=== PATIENT | male | born 1990 | race Caucasian/White ===

== ENCOUNTER 2022-05-31 15:45 | Outpatient (CLI) | payer OTHER, SELFPAY ==
--- OUTSIDE RECORDS SUMMARY | 2022-05-31 15:55 | XMS_ITS | Clinical Summary ---
:1990 Author Organization [facility] Address [address] [place] [address] Care Team Providers Name Role Phone Suzanna Sofia M.D. Primary Care Provider [phone] Source Comments Patient records contain information from all sites at [facility]. For routine questions regarding patient records, call [phone] during business hours, M-F 8:00 AM - 5:00 PM Central Time. Record requests for emergency care only can be directed to [phone] at any time.[facility] Allergies No known active allergies Medications No known medications Active Problems Problem Noted Date Fracture Little Finger Distal Phalanx Nondisplaced Sub sequent With Routine 07/15/2019 Healing Left Resolved Problems Problem Noted Date Resolved Date Palpitations 11/08/2018 11/08/2018 Anxiety 11/08/2018 11/08/2018 Pain Right Lower Quadrant 07/09/2018 11/08/2018 Encounters Date Type Specialty Care Team Description 05/30/2022 Patient Self-Triage Symptom Casing Puller, Prov ider 05/28/2022 Patient Self-Triage Symptom Casing Puller, Prov ider from Last 3 Months Immunizations Name Administration Dates Next Due HepB Pediatric/Adolescent 05/14/1998, 11/10/1997, 10/08/1997 MCV4 (Menactra) 03/02/2005 Tdap 03/02/2005 Family History Medical History Relation Name Comments Coronary artery disease Father Dmitriy Arthritis Maternal Grandmother Sukhdeep Diabetes mellitus type II Maternal Grandmother Sukhdeep Hyperlipidemia Maternal Grandmother Sukhdeep Hypertension Maternal Grandmother Sukhdeep Skin cancer Paternal Grandmother Evelin Relation Name Status Comments Father Dmitriy Maternal Grandmother Sukhdeep Paternal Grandmother Evelin Social History Tobacco Use Types Packs/Day Years Used Date Smoking Tobacco: Never Smokeless Tobacco: Never Alcohol Use Standard Drinks/Week Comments No 0 (1 standard drink = 0.6 oz pure alcoho l) Alcohol Habits Answer Date Recorded How often do you have a drink containing alcohol? Never 06/17/2019 How many drinks containing alcohol do you have on a typical Not asked day when you are drinking? How often do you have six or more drinks on one occasion? Ne kaitlin 06/17/2019 Social Isolation Answer Date Recorded In a typical week, how many times do you talk on Patient ref used 06/17/2019 the phone with family, friends, or neighbors? How often do you get together with friends or Patient refuse d 06/17/2019 relatives? How often do you attend methodist or hoahaoism Patient refused 06/17/2019 services? Do you belong to any clubs or organizations such as Patient refused 06/17/2019 methodist groups, unions, fraternal or athletic groups, or school groups? How often do you attend meetings of the clubs or Patient ref used 06/17/2019 organizations you belong to? Are you now , , , , Living wi th partner 06/17/2019 never or living with a partner? Physical Activity Answer Date Recorded On average, how many days per week do you engage in moderate to 3 days 06/17/2019 strenuous exercise (like walking fast, running, jogging, dancing, swimming, biking, or other activities that cause a light or heavy sweat)? On average, how many minutes do you engage in exercise at is 20 min 06/17/2019 level? Stress Answer Date Recorded Do you feel stress - tense, restless, nervous, or Only a lit tle 06/17/2019 anxious, or unable to sleep at night because your mind is troubled all the time - these days? Financial Resource Strain Answer Date Recorded How hard is it for you to pay for the very basics like Not h margarette at all 06/17/2019 food, housing, medical care, and heating? Food Insecurity Answer Date Recorded Within the past 12 months, you worried that your food would Never true 06/17/2019 run out before you got money to buy more. Within the past 12 months, the food you bought just didn't N ever true 06/17/2019 last and you didn't have money to get more. Transportation Needs Answer Date Recorded In the past 12 months, has lack of transportation kept you f rom No 06/17/2019 medical appointments or from getting medications? In the past 12 months, has lack of transportation kept you f rom No 06/17/2019 meetings, work, or getting things needed for daily living? Education Answer Date Recorded What is the highest level of school Bachelor's degree (e.g., BA, AB, 06/17/2019 you have completed or the highest BS) degree you have received? 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 Vital Signs Vital Sign Reading Time Taken Comments Blood Pressure 110/68 08/26/2019 11:52 AM DRAPERY HEMMER AUTOMATIC Pulse 74 08/26/2019 11:52 AM DRAPERY HEMMER AUTOMATIC Temperature 36.8 ??C (98.2 ??F) 06/12/2019 12:02 PM DRAPERY HEMMER AUTOMATIC Respiratory Rate 14 06/21/2019 10:26 AM DRAPERY HEMMER AUTOMATIC Oxygen Saturation 100% 11/08/2018 11:31 AM CDT Inhaled Oxygen Concentration - - Weight 71.2 kg (156 lb 15.5 oz) 08/26/2019 11:52 AM DRAPERY HEMMER AUTOMATIC Height 174.5 cm (5' 8.7) 08/26/2019 11:52 AM DRAPERY HEMMER AUTOMATIC Body Mass Index 23.38 08/26/2019 11:52 AM DRAPERY HEMMER AUTOMATIC Plan of Treatment Health Maintenance Due Date Last Done Comments Hepatitis C Screening 1990 COVID-19 Vaccine (#1) 1990 DTaP,Tdap,and Td Vaccines (2 03/02/2015 03/02/2005 - Td or Tdap) Depression Screening (Annual 07/10/2021 PHQ-2) Influenza Vaccine (#1) 2022 Hepatitis B Vaccines Completed 05/14/1998, 11/10/1997, 10/08/1997 HIV Screening Completed 09/02/2019 Pneumococcal vaccine (0-64 Aged Out No lo nger eligible based years) on patient's age to complete this to [facility] Insurance Payer Benefit Plan Subscriber ID Effective Phone Address Typ e / Group Dates [employer] xxxxxxxxxxxxx 2019-Pr [phone] [facility] [phone] [facility] [place] [address] [facility] CHOICE [id number] 2021-Pre [address] [address] [place] [address] Fermin Lopez Workers Comp Self 1990 [address] [address] Care Teams Cash Manager Relationship Specialty Start Date End Date Suzanna Sofia M.D. PCP - General 04/03/19 [address] [facility] [address]
--- OUTSIDE RECORDS SUMMARY | 2022-05-31 15:55 | XMS_ITS | Encounter Summary ---
:1990 Author Organization [facility] Address [address] [place] [address] Care Team Providers Name Role Phone Suzanna Sofia M.D. Primary Care Provider [phone] Encounter Details Date Type Department Care Team Description 03/23/2021 Admin Visit Department of Family Medicine, [address] [place] [address] [facility] [phone] Social History Tobacco Use Types Packs/Day Years [...] 06/17/2019 relatives? How often do you attend orthodoxy or quaker Patient refused 06/17/2019 services? 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 PCP - General 04/03/[address] [place] [address] documented as of this encounter
--- OUTSIDE RECORDS SUMMARY | 2022-05-31 15:55 | XMS_ITS | Encounter Summary ---
:1990 Author Organization [facility] Address [address] [place] [address] Care Team Providers Name Role Phone Suzanna Sofia M.D. Primary Care Provider [phone] Encounter Details Date Type Department Care Team Description 05/28/2022 Patient Self-Triage CONNECTED CARE Symptom Hematology Supervisor, Provider Social History Tobacco Use Types Packs/Day Years [...] 06/17/2019 relatives? How often do you attend buddhist or christian Patient refused 06/17/2019 services? Do you belong to any clubs or organizations such as Patient refused 06/17/2019 buddhist groups, unions, fraternal or athletic groups, or [...] minutes do you engage in exercise at th is 20 min 06/17/2019 level? 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 PCP - General 04/03/19 [address] [place] [address] documented as of this encounter
--- OUTSIDE RECORDS SUMMARY | 2022-05-31 15:55 | XMS_ITS | Encounter Summary ---
:1990 Author Organization [facility] Address [address] [place] [address] Care Team Providers Name Role Phone Suzanna Sofia M.D. Primary Care Provider [phone] Encounter Details Date Type Department Care Team Description 05/30/2022 Patient Self-Triage CONNECTED CARE Symptom Market Maker, Provider Social History Tobacco Use Types Packs/Day [...] 06/17/2019 relatives? How often do you attend sabianist or adventism Patient refused 06/17/2019 services? 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 PCP - General 04/03/19 [address] [place] [address] documented as of this encounter
--- OUTSIDE RECORDS SUMMARY | 2022-05-31 15:55 | XMS_ITS | Encounter Summary ---
:1990 Author Organization [facility] Address [address] [place] [address] Care Team Providers Name Role Phone Suzanna Sofia M.D. Primary Care Provider [phone] Reason for Visit Reason Onset Date Comments Testing For Upper Respiratory Virus Symptoms 03/22/2021 Encounter Details Date Type Department Care Team Description 03/22/2021 External Outreach Department of [facility] Werner Hamlinold Contact With And Medicine, Nithya Levy D.O. (Suspected) Exposure Clinic, in [place], [address] To COVID-19 (Primary [place], [place] Dx) [address] [address] [place], [place] [phone] [address] (Work) [phone] Social History Tobacco Use Types Packs/Day Years [...] 06/17/2019 relatives? How often do you attend temple or sikhism Patient refused 06/17/2019 services? Do you belong to any clubs or organizations such as Patient refused 06/17/2019 temple groups, unions, fraternal or athletic groups, or school groups? How often do you attend meetings of the clubs or Patient ref used 06/17/2019 organizations you belong to? 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 - 03/22/2021 3:44 PM CDT Encounter created for symptomatic infectious disease screening with possible COVID, Influenza, RSV, and/or Group A Strep testing. documented in this encounter Miscellaneous Notes Result Encounter Note - Kimberly Nair R.N. - 03/24/2021 9:53 AM CDT The patient will be contacted if they are eligible for Monoclonal Antibody Infusion (MASS 1 or greater) and/or Remote Patient Monitoring (MASS 3 or greater). The [facility] (CCT) sends general guidance about COVID-19 to all patients by letter or portal, except when a patient is hospitalized or resides in a retirement. [facility] will call all adult patients at highest risk for severe complications of COVID-19 (MASS 3 or greater), those without an online services account, and those who require an interpreter for the deaf. Any patient with a MASS score 1 or greater or a COVID-19 score 1 or greater may be at higher risk ofsevere disease. These patients will follow up directly with primary care. The primary care team willdecide if the patient needs a phone call or a follow up portal message to assess symptom severity, provide individualized guidance on symptom monitoring or symptom management, or to reinforce when to se ek care. [facility] encourages patients to follow up with their PCP with questions, worsening symptoms, or for symptom management. For questions, contact the [facility] ([facility]): Pager: [phone] In basket: P [facility] COVID-19 POSITIVE Covid Care e-consult Components of the Monoclonal Antibody Selection Score (MASS) Compromised Immune System/Transplant = 4 points Chronic Kidney Disease on Dialysis = 4 points Age greater than or equal to 55 and chronic pulmonary disease = 3 points Age greater than or equal to 65 = 2 points Age greater than or equal to = 2 points Diabetes = 2 points Age greater than or equal to 55 AND cardiovascular disease = 2 points Age greater than or equal to 55 and hypertension = 1 point NOTE: At the time of testing, patients are instructed to obtain the result by calling the [employer] result line or by checking the online services account. documented in this encounter Plan of Treatment Not on filedocumented as of this encounter Procedures Procedure Name Priority Date/Time Associated Diagnosis Comme nts SARS CORONAVIRUS-2 Routine 03/23/2021 10:01 AM Contact With An d Results for this RNA, V CDT (Suspected) Exposure procedu re are in To COVID-19 the results section. documented in this encounter Results (ABNORMAL) SARS Coronavirus-2 RNA, V Symptomatic (03/23/2021 10:01 AM CDT) [facility] Method Time Signature SARS-CoV-2 Swab, 03/23/2021 [facility] Specimen Nasopharynx 9:07 PM CDT Source SARS CoV-2 Detected (A) Undetected 03/23/2021 [facility] RNA, TMA 9:07 PM CDT Comment: SARS-CoV-2 RNA present. ----ADDITIONAL INFORMATION---- This molecular amplification test was pe rformed using the Aptima SARS-CoV-2 assay ([employer] on the [employer] tem under emergency use authorization (EUA) by the U.S. Food and Drug Administ ration. Fact sheets for this EUA assay can be fo und at the following links: For Healthcare Providers: https://www.fd a.gov/media/613196/download For Patients: https://www.fda.gov/media/ 674797/download Specimen Anatomical Collection Method Collection Time Receive d Time (Source) Location / / Volume Laterality Varies 03/23/2021 10:01 03/23/2021 2:38 (Nasopharynx) AM CDT PM CDT Davide Hamlin D.O. LAB MICROBIOLOGY - GENERAL O GEE Performing Organization Address City/State/ZIP Code Phon e Number [facility]- [address] [place] [id number] [place] [address] [place] [address] [address] documented in this encounter Visit Diagnoses Diagnosis Contact With And (Suspected) Exposure To COVID-19 - Primary documented in this encounter Additional Health Concerns Infection Onset Date Last Indicated Resolved Time COVID19 Pending 03/22/2021 03/23/2021 03/23/2021 9:07 PM CDT documented as of this encounter Care Teams Senior Estimator Relationship Specialty Start Date End Date Suzanna Sofia M.D. PCP - General 04/03/[address] [place] [address] documented as of this encounter
--- OUTSIDE RECORDS SUMMARY | 2022-05-31 15:56 | XMS_ITS | Encounter Summary ---
:1990 Author Organization [facility] Address [address] [place] [address] Care Team Providers Name Role Phone Unavailable Primary Care Provider Unavailable Encounter Details Date Type Department Care Team Description 08/26/2016 Hospital Encounter HX [facility] OCCUP MED Cortney, Jose , TREE LOADER MEAT, C.N.P., D.N.P. Social History Tobacco Use Types Packs/Day Years Used Date Smoking Tobacco: Never Alcohol Habits Answer Date Recorded How often [...] 06/17/2019 relatives? How often do you attend cheondoism or alevism Patient refused 06/17/2019 services? Do you belong to any clubs or organizations such as Patient refused 06/17/2019 cheondoism groups, unions, fraternal or athletic groups, or [...] or getting things needed for daily living? 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 - 08/26/2016 10:58 AM CST Clinic Full [id number]-ocfvgyuphc CHIEF COMPLAINT/REASON FOR VISIT Pre employment [employer] HISTORY OF PRESENT ILLNESS Mr. Lopez is a 26 years old male, who presents to clinic today for Pre-employment physical examination. During this visit, we reviewed the health questionnaire in details and patient deniesany significant health concern. MEDICATIONS No active medications ALLERGIES NKA PAST MEDICAL HISTORY Chronic No chronic problems Historical No historical problems SOCIAL HISTORY Date Time: 08/26/2016 10:16 Tobacco: Smoking Status: Never smoker Exposure: No Results Found Alcohol: Use: No Results Found Recreational Drugs: Use: None Type: No Results Found SOCIAL HISTORY: He is single, lives with his girlfriend, and 2 pets. He denies use of tobacco products, recreational drugs, and consumption of alcoholic beverages. 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 Denies a 2nd job during his visit. HEALTH MAINTENANCE Patient encouraged to maintain healthy lifestyle habits. SYSTEMS REVIEW CONSTITUTIONAL: Denies unexplained weight change, fatigue, weakness, fever, or chills. HEENT: Denies headaches, visual changes, rhinorrhea, epistaxis, or sore throat. HEART: Denies chest pain, chest pressure. LUNGS: Denies coughing, sneezing, wheezing or hemoptysis. MUSCULOSKELETAL: Denies muscle pain, joint pain, redness, or swelling. NEUROLOGIC: Denies numbness, tingling, or seizures. VITAL SIGNS HR: 73 BP: 124 / 61 HT: 176.5 cm WT: 68.70 kg BMI: 22.05 PHYSICAL EXAMINATION VITAL SIGNS: Within normal limit, and stable CONSTITUTIONAL: Well hydrated, well nourished, in no distress, alert and oriented X4. HEENT: Normocephalic, atraumatic, pupils are equal, reactive to light and accommodation. Extraocular movements intact. Ear landmarks present bilaterally. Oropharynx midline and normal. No dental concerns. HEART: Regular rate and rhythm. S1 and S2 present. No murmur noted. LUNGS: Clear lung sounds bilaterally. No adventitious sounds noted. ABDOMEN: Normoactive bowel sounds in all four quadrants. No tenderness with palpation, no organomegaly noted. MUSCULOSKELETAL: Five out of five musculoskeletal strength in all extremities, 5/5 active range of motion, no crepitus, no laxity, no weakness noted. Romberg test is negative. Please see scanned document for details. LAB RESULTS Urine drug test completed. IMPRESSION/REPORT/PLAN Exam Preemployment Ordered: Employment Exam - [id number] Normal Pre-employment Physical He was able to complete all tests without any difficulties, no significant finding noted during this visit. Patient is medically qualified for this job. We reviewed the health history and physical examination per protocol. Patient educated to maintain proper body mechanics to prevent injury. Patient verbalized understanding plan of care and denies any question at this time. Please see scanned documentation for details. Electronically Signed By: JOSE TERAN APRN, CNP On: 08/26/2016 11:03 AM Source: [employer] Document Id: [id number] RE CONSULTANT documented in this encounter Procedure Notes Maryuri Rodriguez C.M.A. - 08/26/2016 10:18 AM CST Vision Testing Vision Testing Entered On: 08/26/2016 10:18 VMWARE CONSULTANT Performed On: 08/26/2016 10:18 VMWARE CONSULTANT by MARYURI RODRIGUEZ CMA Vision Testing Corrective Lenses : None Color Vision : Pass Eye, Right w/o Correction : 20/20 Eye, Left w/o Correction : 20/20 Eyes, Both w/o Correction : 20/20 Field of Vision Right : 85 degrees Field of Vision Left : 85 degrees MARYURI RODRIGUEZ CMA - 08/26/2016 10:18 VMWARE CONSULTANT Source: [employer] Document Id: [id number] VMWARE CONSULTANT!9 RE CONSULTANT documented in this encounter Miscellaneous Notes Miscellaneous - Maryuri Rodriguez C.M.A. - 08/26/2016 10:16 AM CST Adult Casino Beverage Server Intake/History Adult Casino Beverage Server Intake/History Entered On: 08/26/2016 10:18 VMWARE CONSULTANT Performed On: 08/26/2016 10:16 VMWARE CONSULTANT by MARYURI RODRIGUEZ CMA Intake Chief Complaint : Pre employment [employer] Peripheral Pulse Rate : 73 /min Heart Rhythm : Regular Systolic Blood Pressure : 124 mmHg Diastolic Blood Pressure : 61 mmHg NIBP Mean : 82 mmHg BP Location : Left upper extremity Blood Pressure Cuff Size : Regular Height : 176.5 cm(Converted to: 5 ft 9 inch(es), 69 inch(es)) Actual Weight : 68.70 kg(Converted to: 151 lb 7 oz) Weight Source : Standing scale Dosing Weight Clinic : 68.7 kg Prosthetic device on during patient weight : No Clinic BSA : 1.84 Body Mass Index : 22.05 kg/m2 MARYURI RODRIGUEZ [facility] 08/26/2016 10:16 VMWARE CONSULTANT General Info Information Given By : Patient Languages : Maltese Is Patient Female and 13-50 no hysterectomy : No MARYURI RODRIGUEZ [facility] - 08/26/2016 10:16 VMWARE CONSULTANT Subjective Pain Symptoms : No MARYURI RODRIGUEZ [facility] 08/26/2016 10:16 VMWARE CONSULTANT Dependent Habits Smoking Status : Never smoker Tobacco 2A : No Tobacco Use/Currently Using : No Tobacco Use/Last 30 Days : No Tobacco Use/Last 12 months : No MARYURI RODRIGUEZ [facility] 08/26/2016 10:16 VMWARE CONSULTANT Caffeine Use Grid Caffeine Use : Current Type : Soft drinks Frequency : Daily Amount : 1 MARYURI RODRIGUEZ [facility] 08/26/2016 10:16 VMWARE CONSULTANT Recreational Drug Use Grid Drug Use : None MARYURI RODRIGUEZ [facility] 08/26/2016 10:16 VMWARE CONSULTANT Source: [facility] POWERCHART Document Id: [id number] VMWARE CONSULTANT!38 RE CONSULTANT Miscellaneous - Jose Teran APRN, C.N.P. - 08/26/2016 9:15 AM CST Ambulatory Patient Summary [facility] [place] [phone] Visit Information Name: CRITSIAN LOPEZ [facility] Number: [id number] Current Date: 08/26/2016 09:15:10 Physicians Attending Provider: JOSE TERAN APRN MMI TEACHER Primary Care Provider: GIRISH BARBOSA DO CRISTIAN LOPEZ has been given the following list of follow-up instructions, medication list, and patient education materials: Follow-up Instructions Your Medications Here is a list of your medications. It is important to take your medications as directed. Use a pillbox or chart to help remind you to take your medications. Please let your doctor or nurse know if you have problems taking your medications. Medication/Strength How to Take Indications/Special Instructions/Comments/Notes for Patient Medication Changes/Routing No Medications found Stop Taking the Following Medications: Medication list as of 08-26-16 09:15 Attention: If you have any medications at home that are not on this list, DO NOT take them until youcontact your provider for clarification. Give a copy of your medication list to your primary care provider. Update your medication list any time medications or doses are changed and carry your medication list at all times in case of emergency. Electronically Signed By: JOSE TERAN APRN, CNP Signed On:26-AUG-2016 09:15:06 Your Allergies & Intolerances Substance Reaction Symptoms Category Comments No Known Allergies Your Problem List Problem Status Onset Comments No Problems found Your Upcoming Appointments Date Time Location Provider No Appointments found Attention: Contact your local Clinic if further appointment detail needed. Consider Using Patient Online Services Patient Online Services is a secure online and Mobile application that lets you: ?? View lab and test results ?? View portions of your medical record including clinical notes, immunizations and discharge summaries ?? Request an appointment or medication refill ?? Review your appointment schedule ?? Send secure messages to your care team Its easy to create an account if you dont have one. Go to [email or web address] and click on Create Your Account. Then, follow the directions to complete the online form. Youll be asked for your [facility] number which you can find at the top of this document. Your Goals/Additional instructions: Source: [facility] POWERCHART Document Id: [id number] RE CONSULTANT Miscellaneous - Jose Teran APRN, C.N.P. - 08/26/2016 9:15 AM CST Ambulatory Discharge Medication List [facility] [address] [place] [phone] Visit Information Name: CRISTIAN LOPEZ [facility] Number: [id number] Current Date: 08/26/2016 09:15:10 Attending Provider: JOSE TERAN APRN, CNP Primary Care Provider: GIRISH BARBOSA DO CRISTIAN LOPEZ has been given the following list of medications: Your Medications It is important to take your medications as directed. Use a pill box or chart to help remind you to take your medications. Please let your doctor or nurse know if you have problems taking your medications. Medication/Strength How to Take Indications/Special Instructions/Comments/Notes for Patient Medication Changes/Routing No Medications found Stop Taking the Following Medications: Medication list as of 08-26-16 09:15 Attention: If you have any medications at home that are not on this list, DO NOT take them until youcontact your provider for clarification. Give a copy of your medication list to your primary care provider. Update your medication list any time medications or doses are changed and carry your medication list at all times in case of emergency. Electronically Signed By: JOSE TERAN APRN, CNP Signed On:26-AUG-2016 09:15:06 Additional Information: Source: [facility] POWERCHART Document Id: [id number] RE CONSULTANT documented in this encounter Plan of Treatment Not on filedocumented as of this encounter Visit Diagnoses Not on filedocumented in this encounter
--- OUTSIDE RECORDS SUMMARY | 2022-05-31 15:56 | XMS_ITS | Encounter Summary ---
:1990 Author Organization [facility] Address [address] [place] [address] Care Team Providers Name Role Phone Unavailable Primary Care Provider Unavailable Encounter Details Date Type Department Care Team Description 07/18/2013 Hospital Encounter HX [facility] RESIDENTS l, Javi C , D.O. Social History Tobacco Use Types Packs/Day Years Used Date Smoking Tobacco: Never Assessed Alcohol Habits Answer Date Recorded How often [...] 06/17/2019 relatives? How often do you attend scientology or congregation Patient refused 06/17/2019 services? 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 - 07/18/2013 12:56 PM CST [id number] HISTORY OF PRESENT ILLNESS: Fermin is in today to see Dr. Ferrer for a physical examination related to school. 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 I have reviewed all the history and physical examinations with Dr. Ferrer. I did go in. PHYSICAL EXAMINATION: GENERAL: He is alert and oriented, no acute distress. VITAL SIGNS: Temperature is 36.4 Celsius, pulse is 86 and regular, blood pressure 122/70. His weightis 63.0 kg. SKIN: Warm and dry. LUNGS: Clear to auscultation. HEART: Regular without murmur or gallop. IMPRESSION/REPORT/PLAN: All the rest of the details of the history and physical examination are noted in Dr. Ferrer's dictated note. I agree with his assessment and his plan of care. Cliff Cervantes M.D./pos Electronically Signed By: CLIFF CERVANTES MD On: 07/25/2013 11:29 AM Source: [facility] [employer] Document Id: [id number] N UNLOADER MACHINE documented in this encounter H&P Notes Javi Ferrer D.O. - 07/18/2013 12:56 PM CST [id number] PRECEPTOR: Please note, this patient was seen by and also precepted to Dr. Destini Cervantes. CHIEF COMPLAINT/REASON FOR VISIT Physical examination for law enforcement course. 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 He currently has no medical concerns or complaints outside of that he needs a general physical examination for graduation requirements. MEDICATIONS None. ALLERGIES None. SYSTEMS REVIEW A 12-point review of systems was conducted including HEENT, respiratory, cardiovascular, GI, , musculoskeletal, neuro, and psych and, is otherwise unremarkable unless noted previously already in the HPI. PAST MEDICAL/SURGICAL HISTORY MEDICAL: None. SURGICAL: None. SOCIAL HISTORY Patient denies alcohol usage. Patient denies tobacco usage. Patient denies usage of illicit drugs. 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 FAMILY HISTORY Unremarkable. Mother is age 49. Father is 59. Both are alive and healthy. VITAL SIGNS Temperature 36.4, heart rate 86, blood pressure 122/70, height 172.1 cm, weight 63.0 kg, BMI 21.27 kg/m2. PHYSICAL EXAMINATION GENERAL: Fermin is a well-appearing, 23-year-old male who appears in no acute distress. HEENT: Normocephalic and atraumatic. Pupils equal, round, react to light and accommodation. Extraocular muscles are intact bilaterally. Oral mucosa is moist and pink. Nares are patent bilaterally. Tympanic membranes are visualized with a normal cone of light. Patient's hearing examination is unremarkable. Patient was able to pass the hearing examination in the right and left ears at 500, 1000, 2000, and 4000 Hz. Patient visual examination test with a Snellen eye chart was 20/25 in the left eye and 20/30 in the right eye. NECK: Supple. No JVD. No thyromegaly. No lymphadenopathy. HEART: Regular rate and rhythm with no murmurs, gallops, or rubs. LUNGS: Clear to auscultation with good breath sounds. No wheezes, rales, or rhonchi. ABDOMEN: Soft, nondistended. Bowel sounds present in all 4 quadrants. No organomegaly palpable. MUSCULOSKELETAL: Full range of motion in all 4 extremities with appropriate muscle strength at 5/5. Patient is able to toe and heel walk as well as heel-to-toe walk with ease. Patient is able to duck walk and squat. Patient is able to flex and extend his spine without any limitations or pain. NEURO: Cranial nerves 2-12 are grossly intact. Deep tendon reflexes are 2+ throughout. VASCULAR: Pulses are 2+ throughout with no signs of edema. GENITOURINARY: Testicular examination shows no signs of masses and is nontender. Patient has no signs of inguinal hernia. OSTEOPATHIC EXAMINATION: Patient was examined in the seated and upright position and shows no signs of tissue texture abnormalities. PSYCH: The patient has appropriate mood and affect. He has appropriate eye contact. His speech is fluent. 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 Patient is unremarkably healthy, and I haveno concerns. PLAN: General medical examination: 1. Fermin does not have any preexisting injuries or medical restrictions which may affect his abilityto safely participate in strenuous but not unduly harsh training activities. 2. He is unremarkably healthy, and I have no concerns about his health at this time. 3. No laboratory testing was evaluated at today's appointment and will not be evaluated unless needed or requested by the program. 4. A vision and hearing examination were performed today, and the patient did pass both. Of note, hedid state that he previously had 20/15 vision in both eyes; however, had seen an business enterprise officer within the last year for general examination. After receiving some eye drops, his vision has since somewhat changed. He has not returned to an business enterprise officer to have this reevaluated, but it does not cause him any problems. Javi Ferrer D.O./pos cc: Cliff Cervantes M.D. [facility] [place] [address] Electronically Signed By: JAVI FERRER DO On: 07/19/2013 01:05 PM Source: [facility] [id number] Document Id: [id number] N UNLOADER MACHINE documented in this encounter Procedure Notes Earle Valadez C.M.A. - 07/18/2013 1:57 PM CST Vision Testing Vision Testing Entered On: 07/18/2013 13:57 GRAIN UNLOADER MACHINE Performed On: 07/18/2013 13:57 GRAIN UNLOADER MACHINE by EARLE VALADEZ Vision Testing Eye, Right w/o Correction : 20/30 Eye, Left w/o Correction : 20/25 EARLE VALADEZ - 07/18/2013 13:57 GRAIN UNLOADER MACHINE Source: [facility] POWERCHART Document Id: [id number] GRAIN UNLOADER MACHINE!4 N UNLOADER MACHINE Earle Valadez C.MDipika - 07/18/2013 1:56 PM CST Hearing Point of Care Testing - Audiometer Hearing Point of Care Testing - Audiometer Entered On: 07/18/2013 13:57 GRAIN UNLOADER MACHINE Performed On: 07/18/2013 13:56 GRAIN UNLOADER MACHINE by EARLE VALADEZ Hearing Point of Care Testing - Audiometer Left Ear Hearing POC Test Grid Left Ear 20 db Left Ear 25 db Left Ear 30 db 500 Hz : No response Response 1000 Hz : Response 2000 Hz : Response 4000 Hz : Response JUANITAANITRAEARLE Jose - 07/18/2013 13:56 GRAIN UNLOADER MACHINE EARLE VALADEZ - 07/18/2013 13:56 GRAIN UNLOADER MACHINE EARLE VALADEZ - 07/18/2013 13:56 GRAIN UNLOADER MACHINE Right Ear Hearing POC Test Grid Right Ear 20 db Right Ear 25 db Right Ear 30 db 500 Hz : No response Response 1000 Hz : Response 2000 Hz : Response 4000 Hz : Response EARLE VALADEZ - 07/18/2013 13:56 GRAIN UNLOADER MACHINE JUANITA EARLE M - 07/18/2013 13:56 GRAIN UNLOADER MACHINE EARLE VALADEZ - 07/18/2013 13:56 GRAIN UNLOADER MACHINE Source: [facility] POWERCHART Document Id: [id number] GRAIN UNLOADER MACHINE!20 N UNLOADER MACHINE documented in this encounter Miscellaneous Notes Miscellaneous - Arianna Keith, TaniaPMaryN. - 11/01/2016 9:56 AM CDT PCP Document Contains Addenda Addendum by PRINCESS WHITE on November 01, 2016 10:15:02 CDT DONE From: ARIANNA KEITH LPN To: [facility] Patient Access; Sent: 11/01/2016 09:56:26 CDT Subject: PCP PCP Field Change Request Reason for PCP Field Change Request: ( ) Patient Transferring Care to another non-[place] facility (ex. Moved out of state) change to PCP, Elsewhere ( ) Patient seen by another [place] provider for primary care needs. Provide name of new PCP. ( X ) Other: Please change PCP to Elsewhere. pt LV 07/18/2013; pt did not formally establish with [facility] providers, 2 encouters were regarding physicals. Note: If patient is , nursing to notify HIM in order to enter a date into the EMR. *Ensure EMR documentation supports reason for change. ( ) Yes or ( ) No Patient has been contacted (if no, then Patient Access will call) [facility] Document Id: [id number] N UNLOADER MACHINE Miscellaneous - Earle Valadez C.MDipika - 07/18/2013 1:14 PM CST Adult Case Resolution Specialist Intake/History Adult Case Resolution Specialist Intake/History Entered On: 07/18/2013 13:17 GRAIN UNLOADER MACHINE Performed On: 07/18/2013 13:14 GRAIN UNLOADER MACHINE by EARLE VALADEZ Intake Chief Complaint : [employer] Temperature Core : 36.4 DegC(Converted to: 97.5 DegF) (LOW) Peripheral Pulse Rate : 86 /min Heart Rhythm : Regular Systolic Blood Pressure : 122 mmHg Diastolic Blood Pressure : 70 mmHg NIBP Mean : 87 mmHg BP Location : Right upper extremity Blood Pressure Cuff Size : Regular Height : 172.1 cm(Converted to: 5 ft 8 inch(es), 67.76 inch(es)) Actual Weight : 63.0 kg(Converted to: 138 lb 14 oz) Weight Source : Standing scale Dosing Weight Clinic : 63 kg Clinic BSA : 1.74 Body Mass Index : 21.27 kg/m2 EARLE VALADEZ - 07/18/2013 13:14 GRAIN UNLOADER MACHINE General Info Information Given By : Patient Languages : Macedonian EARLE VALADEZ - 07/18/2013 13:14 GRAIN UNLOADER MACHINE Subjective Pain Symptoms : No EARLE VALADEZ 07/18/2013 13:14 GRAIN UNLOADER MACHINE Dependent Habits Tobacco Use/Currently Using : No Smoking Status : Never smoker Alcohol Use : No EARLE VALADEZ - 07/18/2013 13:14 GRAIN UNLOADER MACHINE Caffeine Use Grid Caffeine Use : Current Type : Soft drinks Frequency : Daily Amount : 1 EARLE VALADEZ - 07/18/2013 13:14 GRAIN UNLOADER MACHINE Recreational Drug Use Grid Drug Use : None EARLE VALADEZ 07/18/2013 13:14 GRAIN UNLOADER MACHINE Source: [facility] [employer] Document Id: [id number] GRAIN UNLOADER MACHINE!35 N UNLOADER MACHINE documented in this encounter Plan of Treatment Not on filedocumented as of this encounter Visit Diagnoses Not on filedocumented in this encounter
--- OUTSIDE RECORDS SUMMARY | 2022-05-31 15:56 | XMS_ITS | Encounter Summary ---
:1990 Author Organization [facility] Address [address] [place] [address] Care Team Providers Name Role Phone Suzanna Sofia M.D. Primary Care Provider [phone] Encounter Details Date Type Department Care Team Description 06/12/2019 Clinical Communication [facility] [place], [place] P.A.-C[address] [facility] [place] [phone] Social History Tobacco Use Types Packs/Day Years [...] 06/17/2019 relatives? How often do you attend mandaeism or sabianism Patient refused 06/17/2019 services? 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 - 06/13/2019 10:53 AM CST Patient calling in to schedule appointment as noted by provider. Appointment given with PARUL Chacko on 06/21/19. This is a work comp case through the [facility]. RVISOR PROPERTIES Telephone Encounter - Tonya Anglin L.P.N. - 06/12/2019 3:31 PM SUPERVISOR PROPERTIES Unable to leave message to return our call. Voice mailbox full. [employer]OR [employer] Telephone Encounter - Figueroa Martines M.D. - 06/12/2019 2:37 PM SUPERVISOR PROPERTIES Should see a PA end of next week for repeat eval and xray RVISOR PROPERTIES documented in this encounter Plan of Treatment Not on filedocumented as of this encounter Visit Diagnoses Not on filedocumented in this encounter Care Teams Mop Worker Relationship Specialty Start Date End Date Suzanna Sofia M.D. PCP - General 04/03/192199 [address] [address] documented as of this encounter
--- OUTSIDE RECORDS SUMMARY | 2022-05-31 15:56 | XMS_ITS | Encounter Summary ---
:1990 Author Organization [facility] Address [address] [place] [address] Care Team Providers Name Role Phone Arpita Sams APRN, C.N.P., M.S. Primary Care Pro vider Reason for Visit Reason Comments Abdominal Pain Constant ache on right ron e that has some pain; constipation/diarrhea; small amount of bright red blood a few weeks ago Appointment Request (Routine) - Closed Specialty Diagnoses / Procedures Referred By Contact Refer red To Contact Family Medicine Referral ID Status Reason Start Date Expiration Date Visits Requ ested Visits Authorized [id number] Closed 07/09/2018 07/09/2019 1 Encounter Details Date Type Department Care Team Description 07/09/2018 Office Visit Department of Family Neftali crawford Right Lower Medicine, Nithya rtArpita APRN, Quadra nt (Primary Dx) Clinic, in [place] Saleh, M.S . [place] [address] [facility] [address] [place], [place] [phone] Social History Tobacco Use Types Packs/Day Years [...] 06/17/2019 relatives? How often do you attend sabianism or mormon Patient refused 06/17/2019 services? Do you belong to any clubs or organizations such as Patient refused 06/17/2019 sabianism groups, unions, [employer]less [employer] or athletic groups, or school groups? 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 encounter Last Filed Vital Signs Vital Sign Reading Time Taken Comments Blood Pressure 124/78 07/09/2018 10:59 AM CONTENT PRODUCTION SPECIALIST Pulse 64 07/09/2018 10:59 AM CONTENT PRODUCTION SPECIALIST Temperature 36.5 ??C (97.7 ??F) 07/09/2018 10:59 AM CONTENT PRODUCTION SPECIALIST Respiratory Rate 16 07/09/2018 10:59 AM CONTENT PRODUCTION SPECIALIST Oxygen Saturation - - Inhaled Oxygen Concentration - - Weight 69.7 kg (153 lb 10.6 oz) 07/09/2018 10:59 AM CONTENT PRODUCTION SPECIALIST Height - - Body Mass Index 22.37 08/26/2016 10:16 AM CONTENT PRODUCTION SPECIALIST documented in this encounter Patient Instructions Patient InstructionsArpita Sams APRN, C.N.P. - 07/09/2018 11:15 AM CST 1. MiraLax powder 1 cap full daily (17 g) mixed in liquid of your choice. Goal is to have 1 soft, easy to pass bowel movement daily. Can try twice daily dosing if needed. 2. If no bowel movement by next day off, can try using magnesium citrate. This is available at the [employer]. Drink entire bottle. Results usually within 6 hr. May repeat dose 1 time if necessary. 3. Water 4. Fruits and vegetables 5. Follow up if symptoms get worse or do not improve with interventions discussed today ENT PRODUCTION SPECIALIST documented in this encounter Progress Notes Arpita Sams APRN, C.N.P. - 07/09/2018 11:15 AM CST CHIEF COMPLAINT / REASON FOR VISIT Fermin Lopez is a 28 y.o. male who presents for evaluation of Abdominal Pain (Constant ache on right side that has some pain; constipation/diarrhea; small amount of bright red blood a few weeks ago). HISTORY OF PRESENT ILLNESS Patient presents today for evaluation of abdominal pain. He states this has been going on for 3-4 weeks. The pain is a constant pressure ???like any distress?? on his right lateral abdomen. He intermittently has increasing sharp right lower abdominal pain. This lasts for a few moments and then goes away without intervention. Few nights ago he was woken from sleep due to his pain in his right lower quadrant. The pain was quite intense and he noticed he was sweating. He denies any nausea or vomiting.No fever. No unintentional weight loss. Last bowel movement was yesterday but was not normal. His last ???normal?? BM was 4- 5 days ago. He states that he has been alternating between constipation and d iarrhea. He has been more constipation prone over the last few weeks. He had 1 episode of bright redblood on the toilet paper after passing stool. He has had no further incidence. No blood noted without passing of stool. Denies painful defecation. No sense of tenesmus. No bloating. Upon questioning, he feels he may have increased frequency of urination over the last several months, but nothing acute. No dysuria or hematuria. He denies significant dietary changes in recent weeks, even over the holidays. He does not take any medications or supplements. He denies significant stress or any change to normal stress levels. He has tried treating his symptoms with Tums which did not cause any change. He has not needed any pain medication. The following portions of the patient's history were reviewed: medical history and problem list. No current outpatient prescriptions on file. No Known Allergies SOCIAL HISTORY Social History Social History ??? Marital status: Single Spouse name: N/A ??? Number of children: N/A ??? Years of education: N/A Social History Main Topics ??? Smoking status: Never Smoker ??? Smokeless tobacco: Never Used ??? Alcohol use No ??? Drug use: No ??? Sexual activity: Yes Partners: Female control/ protection: Condom Other Topics Concern ??? None Social History Narrative ??? None REVIEW OF SYSTEMS Please see HPI for pertinent positives and negatives Answers for HPI/ROS submitted by the patient on 07/09/2018 No general issues: Yes No eye issues: Yes No ENT issues: Yes No heart issues: Yes No respiratory issues: Yes Abdominal (belly) pain or cramping: Yes Constipation: Yes Diarrhea: Yes Blood in stool: Yes No muscle/bone issues: Yes No skin issues: Yes No neurologic issues: Yes No mental health issues: Yes No blood/lymph issues: Yes No urinary/reproductive issues: Yes OBJECTIVE PHYSICAL EXAMINATION BP 124/78 (BP Location: Right arm, Patient Position: Sitting, Cuff Size: Regular) Pulse 64 Temp 36.5 ??C (Temporal) Resp 16 Wt 69.7 kg BMI 22.37 kg/m?? GENERAL: Alert and oriented x3, in no acute distress. HEENT: Head: Normocephalic, atraumatic Eyes: Conjunctivae pink, sclerae white Ears: Hearing is grossly intact. Mouth: Oropharyngeal mucosa pink and moist, without erythema, edema, lesions or exudate. NECK: Supple, no thyromegaly or lymphadenopathy. HEART: Regular rate and rhythm. Normal S1 and S2. No rubs, or gallops. 1/6 systolic murmur. LUNGS: Clear to auscultation. No significant rhonchi, wheezes, or rales. ABDOMEN: Flat, soft, tender to palpation in right lower quadrant. No guarding. No rebound tenderness. Negative Rovsing and psoas sign. Active bowel sounds throughout. No masses or hepatosplenomegaly. Dullness to percussion in bilateral lower quadrants. No CVA tenderness. EXTREMITIES: Warm without cyanosis clubbing or edema. Capillary refills less than 2 sec in all extremities. Radial and dorsalis pedis pulses 2+ and symmetric. MUSCULOSKELETAL: Gait is normal. Normal muscle strength and tone throughout. NEUROLOGICAL: Grossly nonfocal PSYCHIATRIC: Appropriate affect. Thought coherent. DIAGNOSTICS Results for orders placed or performed in visit on 07/09/18 CBC with Differential, Blood Result Value Ref Range Hemoglobin 14.8 13.2 - 16.6 g/dL Hematocrit 41.8 38.3 - 48.6 % Erythrocytes 4.69 4.35 - 5.65 x10(12)/L MCV 89.1 78.2 - 97.9 fL RBC Distrib Width 11.9 11.8 - 14.5 % Platelet Count 231 135 - 317 x10(9)/L Leukocytes 3.7 3.4 - 9.6 x10(9)/L Neutrophils 2.28 1.56 - 6.45 x10(9)/L Lymphocytes 0.98 0.95 - 3.07 x10(9)/L Monocytes 0.36 0.26 - 0.81 x10(9)/L Eosinophils 0.08 0.03 - 0.48 x10(9)/L Basophils 0.01 0.01 - 0.08 x10(9)/L ASSESSMENT / PLAN #1 Pain Right Lower Quadrant Suspect constipation causing symptoms. Discussed obtaining abdominal x-ray and full laboratory diagnostics including urinalysis. Patient would like to minimize cost and declines. We did go ahead and proceed with a complete blood count which was normal today. Patient is going to try increasing water and fiber intake. He will also try utilizing MiraLax daily with a goal of passing 1 soft, stool daily. If he does not have improved bowel regularity by his next day off in 5 days, he can try using magnesium citrate. If symptoms worsen or persist, he will follow up with us and we will proceed with furthertesting. Patient agrees with the plan of care from today's visit, and he denies further questions or concerns. ENT PRODUCTION SPECIALIST documented in this encounter Plan of Treatment Not on filedocumented as of this encounter Procedures Procedure Name Priority Date/Time Associated Diagnosis Comme nts CBC WITH Routine 07/09/2018 12:14 PM Pain Right Lower Resu lts for this DIFFERENTIAL, B CONTENT PRODUCTION SPECIALIST Quadrant procedure ar e in the results section. documented in this encounter Results CBC with Differential, Blood (07/09/2018 12:14 PM CONTENT PRODUCTION SPECIALIST) P athologist Signature Hemoglobin 14.8 13.2 - 07/09/2018 [facility] 16.6 g/dL 12:19 PM [facility] Hematocrit 41.8 38.3 - 07/09/2018 [facility] 48.6 % 12:19 PM [facility] Erythrocytes 4.69 4.35 - 07/09/2018 [facility] 5.65 12:19 PM [facility] [employer] x10(12)/L SYSTEM- [facility] MCV 89.1 78.2 - 07/09/2018 [facility] 97.9 fL 12:19 PM [facility] RBC Distrib Width 11.9 11.8 - 07/09/2018 [facility] 14.5 % 12:19 PM [facility] Platelet Count 231 135 - 317 07/09/2018 [facility] x10(9)/L 12:19 PM [facility] [place] [facility] Leukocytes 3.7 3.4 - 9.6 07/09/2018 [facility] x10(9)/L 12:19 PM CONTENT PRODUCTION SPECIALIST [facility] [place] [facility] Neutrophils 2.28 1.56 - 07/09/2018 [facility] 6.45 12:19 PM CONTENT PRODUCTION SPECIALIST HEALTH x10(9)/L SYSTEM- [place] [facility] Lymphocytes 0.98 0.95 - 07/09/2018 [facility] 3.07 12:19 PM CONTENT PRODUCTION SPECIALIST HEALTH x10(9)/L SYSTEM- [place] [facility] Monocytes 0.36 0.26 - 07/09/2018 [facility] 0.81 12:19 PM CONTENT PRODUCTION SPECIALIST HEALTH x10(9)/L SYSTEM- [place] [facility] Eosinophils 0.08 0.03 - 07/09/2018 [facility] 0.48 12:19 PM CONTENT PRODUCTION SPECIALIST HEALTH x10(9)/L SYSTEM- [place] [facility] Basophils 0.01 0.01 - 07/09/2018 [facility] 0.08 12:19 PM CONTENT PRODUCTION SPECIALIST HEALTH x10(9)/L SYSTEM- [place] [facility] Specimen Anatomical Collection Method Collection Time Receive d Time (Source) Location / / Volume Laterality Blood (Blood, 07/09/2018 12:14 07/09/2018 Venous) PM CONTENT PRODUCTION SPECIALIST 12:15 PM CONTENT PRODUCTION SPECIALIST Lorena Zhang APRN.N.P., M.S. LAB BLOOD A DD-ON Performing Organization Address City/State/ZIP Code Phon e Number [facility] [place] [address] [place] [address] LAB documented in this encounter Visit Diagnoses Diagnosis Pain Right Lower Quadrant - Primary documented in this encounter Care Teams Parking Enforcement Technician Relationship Specialty Start Date End Date Arpita Sams APRN, PCP - General Family Medicine 07/0904/02/19 C.N.P., M.S. [address] [place] [address] documented as of this encounter
--- OUTSIDE RECORDS SUMMARY | 2022-05-31 15:56 | XMS_ITS | Encounter Summary ---
:1990 Author Organization [facility] Address [address] [place] [address] Care Team Providers Name Role Phone Arpita Sams APRN, C.N.P., M.S. Primary Care Pro vider Reason for Visit Reason Comments Headache X4 weeks Appointment Request (Routine) - Closed Specialty Diagnoses / Procedures Referred By Contact Refer red To Contact Family Medicine Referral ID Status Reason Start Date Expiration Date Visits Requ ested Visits Authorized [id number] Closed 11/01/2018 11/01/2019 1 1 Encounter Details Date Type Department Care Team Description 11/08/2018 Office Visit Department of Family Neftali simpson (Primary Dx) Medicine, [place] Arpita hernandez APRN, Clinic, in [place] Saleh[place], M.S . [place] [address] [facility] [address] [place], [place] [phone] Social History Tobacco Use Types Packs/Day Years [...] How often do you attend mandaeism or mormon Patient refused 06/17/2019 services? 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 - 11/08/2018 11:45 AM CDT 1. Schedule an eye exam 2. Make sure that your hydrated. 3. Can use [id number] pain medications such as ibuprofen or Aleve. Only treat the 3 worst headaches of the week. Can use Tylenol as needed. 4. Heat, massage to the neck/shoulders. 5. Try to limit screen time when you are not at work 6. Of keep a diary of your headache symptoms if they are persistent. 7. If symptoms worsen or become persistent, let me know and we can consider further evaluation (imaging/Neurology) 8. Okay to start allergy pill to see if this can help. documented in this encounter Progress Notes Arpita Sams APRN, C.N.P. - 11/08/2018 11:45 AM CDT CHIEF COMPLAINT / REASON FOR VISIT Headache (X4 weeks ). SUBJECTIVE HISTORY OF PRESENT ILLNESS Fermin Lopez is a 28 y.o. male who presents for evaluation of ongoing headaches. Symptoms initially started 1 month ago. He had what he describes as a bad headache for a few days. He took Tylenol or ibuprofen without improvement. His symptoms abruptly improved overnight, but they never completely wentaway. For the last several weeks he has been experiencing a mild headache that is not impacting his ability to work or perform activities of daily living. They headache is located behind his eyes and on his bilateral temples. It fluctuates in severity throughout the day. He feels that he is mildly sensitive to light and noise, but he denies any nausea or vomiting. He describes the pain as both squeezing and throbbing. He has never been woken from sleep with a headache but he does occasionally wake up with headache. No worsening with sexual activity or exertion. No visual changes. He reports that hehas a history of allergies but these have not been bothersome yet this year. He has felt ???clogged?? but only in the mornings. He has not tried any medications to treat his headache at all for the last several weeks. His last eye exam was several years ago. He reports some intake of water on a dailybasis but potentially inadequate intake. 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 Patient also has concerns about his right foot. He states that in the last week he has had 6-7 episodes where his right foot felt hot. It was not warm to the touch. This spontaneously resolves without any intervention. He has no foot discomfort. The following portions of the patient's history were reviewed and updated as appropriate: allergies,current medications, medical history, social history and problem list. No current outpatient prescriptions on file. No Known Allergies SOCIAL HISTORY Social History Social History ??? Marital status: Single Spouse name: N/A ??? Number of children: N/A ??? 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 Smoking status: Never Smoker ??? Smokeless tobacco: Never Used ??? Alcohol use No ??? Drug use: No ??? Sexual activity: Yes Partners: Female control/ protection: Condom Other Topics Concern ??? None Social History Narrative ??? None REVIEW OF SYSTEMS Please see HPI for pertinent positives and negatives OBJECTIVE PHYSICAL EXAMINATION BP 122/70 (BP Location: Right arm, Patient Position: Sitting, Cuff Size: Regular) Pulse 72 Temp 36.6 ??C (Temporal) Ht 174.2 cm Wt 70.1 kg SpO2 100% BMI 23.10 kg/m?? GENERAL: Alert and oriented x3, in no acute distress. HEENT: Head: Normocephalic, atraumatic Eyes: Conjunctivae pink, sclerae white. EOMs intact. PERRLA. Ears: External auditory canals without erythema, edema, lesions, or debris. Bilateral tympanic membranes, pearly nuno, with slightly scattered cone of light reflex bilaterally. Bony landmarks visualized bilaterally. Nose: Nasal mucosa is pink. No nasal discharge. No sinus tenderness. Mouth: Oropharyngeal mucosa pink and moist, without erythema, edema, lesions or exudate. NECK: Supple, no lymphadenopathy HEART: Regular rate and rhythm. Normal S1 and S2. No appreciable murmurs, rubs, or gallops. LUNGS: Clear to auscultation. No significant rhonchi, wheezes, or rales. EXTREMITIES: Warm without cyanosis clubbing or edema. Capillary refills less than 2 sec in all extremities. Radial and dorsalis pedis pulses 2+ and symmetric. Temperature is symmetric in bilateral feet. NEUROLOGICAL: Cranial nerves 2-12 grossly intact. Deep tendon reflexes are 2+ and symmetric throughout. Sensation to light touch is intact in extremities. Cerebellar testing negative. MUSCULOSKELETAL: Gait is normal. Normal muscle strength and tone throughout. PSYCHIATRIC: Appropriate affect. Thought coherent. ASSESSMENT / PLAN #1 Headache Symptoms appear consistent with tension type headache. Encouraged use of [id number]-oks-vytwoky analgesicssuch as ibuprofen or Aleve and acetaminophen. Discussed treating only the 3 worst headaches of the week to prevent rebound. Increase water intake. Consider eye exam. Asked him to maintain a journal of his headache symptoms. He is going to try to reduce his screen time and I strain. There may be a component of allergies contributing to his symptoms. He is going to try restarting his Zyrtec that he takes in the spring. If there is no significant improvement after a few weeks and allergy symptoms are not bothersome, he can discontinue. If symptoms worsen or persist over the next month, he will follow up via patient online services. #2 Right foot concern Physical exam is normal. He is provided reassurance that there appears to be no circulatory issue. No sensory problems. Patient will continue observe and follow up if symptoms worsen. Patient agrees with the plan of care from today's visit and denies further questions or concerns. documented in this encounter Plan of Treatment Not on filedocumented as of this encounter Visit Diagnoses Diagnosis Headache Unspecified - Primary documented in this encounter Care Teams Assistant Distribution Manager Relationship Specialty Start Date End Date Arpita Sams APRN, PCP - General Family Medicine 07/0904/02/19 CN[place], M.S. [address] [place] [address] documented as of this encounter
--- OUTSIDE RECORDS SUMMARY | 2022-05-31 15:56 | XMS_ITS | Encounter Summary ---
:1990 Author Organization [facility] Address [address] [place] [address] Care Team Providers Name Role Phone Suzanna Sofia M.D. Primary Care Provider [phone] Reason for Visit Reason Comments Finger Pain w/c left pinky finger injure d in training x 1 day Encounter Details Date Type Department Care Team Description 06/12/2019 Office Visit Urgent Care in [place] Puja M, Fracture Li ttle Finger [place], [place] P.A.-C. Distal Phalanx [address] Displaced Closed [place], [place] Initial Left (P rimary [phone] Dx) [phone] Social History Tobacco Use Types Packs/Day Years [...] 06/17/2019 relatives? How often do you attend restorationism or protestant Patient refused 06/17/2019 services? 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 - 06/12/2019 10:30 AM CST Orthopedics will call you with their recommendations. If they do not call by tomorrow, please do call the clinic. Apply ice 2-3 times per day. Ibuprofen as needed for pain. STRIPPER documented in this encounter Progress Notes Puja Rizvi P.A.-C. - 06/12/2019 10:30 AM CST CHIEF COMPLAINT / REASON FOR VISIT Finger Pain (w/c left pinky finger injured in training x 1 day ) HISTORY OF PRESENT ILLNESS Fermin Lopez is a 29 y.o. male who presents for evaluation of left pinky finger pain. 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 When he was trying to get the leash on the dog, the dog jumped from the car, twisting his pinky in the dog's collar. Patient has never injured this hand in the past. He is right hand dominant. Patient Active Problem List Diagnosis (none) - all problems resolved or deleted No current outpatient medications on file. No current facility-administered medications for this visit. No Known Allergies OBJECTIVE BP 115/68 (BP Location: Right arm, Patient Position: Sitting, Cuff Size: Regular) Pulse 63 Temp 36.8 ??C (Oral) Resp 16 Wt 72.7 kg BMI 23.96 kg/m?? PHYSICAL EXAMINATION General: No acute distress. Patient is polite and cooperative. Appropriately dressed and normal hygiene. Skin: No suspicious lesions or rash noted over exposed skin. MSK: Sensation intact to right hand. Patient has limited flexion of the 5th digit. Full extension. Tenderness to palpation over distal phalanx of left 5th digit with obvious ecchymosis. Mental Health: Alert and oriented. Normal thought form and content. DIAGNOSTICS DX Fingers Left: IMPRESSION: Acute minimally displaced and comminuted fracture of the left fifth distal phalangeal shaft. Small volar surface soft tissue defect. Mild associated soft tissue swelling. This finding can be associated with open fracture, correlate clinically. No radiopaque foreign bodies. ASSESSMENT / PLAN #1 Fracture Little Finger Distal Phalanx Displaced Closed Initial Left - Mildly displaced fracture of distal phalanx. Patient was placed in Alumafoam splint. - Apply ice to the area 2-3 times per day, ibuprofen/tylenol as needed for pain. - Message sent to orthopedics for follow-up plan. Electronically signed by: Puja Rizvi P.A.-C. 06/12/19 3:35 PM STRIPPER documented in this encounter Plan of Treatment Not on filedocumented as of this encounter Results DX Fingers Left 2+ Views (06/12/2019 12:28 PM LEHR STRIPPER) Anatomical Region Laterality Modality Upper Extremity, Fingers, Musculoskeletal RST LOS, Left Computed Radiography Musculoskeletal ARZ LOS, Muskuloskeletal FLA LOS Specimen (Source) Anatomical Collection Method Collection Time Re ceived Time Location / / Volume Laterality 06/12/2019 12:47 PM LEHR STRIPPER Impressions 06/12/2019 12:48 PM LEHR STRIPPER Acute minimally displaced and comminuted fracture of the left fifth distal phalangeal shaft. Small volar joe face soft tissue defect. Mild associated soft tissue swelling. This finding can b e associated with open fracture, correlate clinically. No radiopaque fore ign bodies. Narrative 06/12/2019 12:48 PM LEHR STRIPPER EXAM: DX FINGERS LEFT 2+ VIEWS COMPARISON: None Procedure Note Mejia Chatman M.D. - 06/12/2019Formattchuy g of this note might be different from the original. EXAM: DX FINGERS LEFT 2+ VIEWS COMPARISON: None IMPRESSION: Acute minimally displaced and comminuted fracture of the left fifth distal phalangeal shaft. Small volar joe face soft tissue defect. Mild associated soft tissue swelling. This finding can b e associated with open fracture, correlate clinically. No radiopaque fore ign bodies. Puja Rizvi P.A.-C. [facility] PADMINI HADLEY documented in this encounter Visit Diagnoses Diagnosis Fracture Little Finger Distal Phalanx Di splaced Closed Initial Left - Primary Pain Finger Left documented in this encounter Care Teams Clinical Science Consultant Relationship Specialty Start Date End Date Suzanna Sofia M.D. PCP - General 04/03/[address] [phone] documented as of this encounter
--- OUTSIDE RECORDS SUMMARY | 2022-05-31 15:56 | XMS_ITS | Encounter Summary ---
:1990 Author Organization [facility] Address [address] [place] [address] Care Team Providers Name Role Phone Suzanna Sofia M.D. Primary Care Provider [phone] Reason for Visit Reason Comments Annual Exam Appointment Request (Routine) - Closed Specialty Diagnoses / Procedures Referred By Contact Refer red To Contact Family Medicine Referral ID Status Reason Start Date Expiration Date Visits Requ ested Visits Authorized [id number] Closed 08/12/2019 08/11/2020 1 1 Encounter Details Date Type Department Care Team Description 08/26/2019 Comprehensive Visit Department of [facility], General Medical Examination Adult (Primary Dx); Family Medicine, Bartolo Levy APRN, Screening F or Venereal Disease; [facility], C.N.P., Human Immun odeficiency Virus Screening; in [place], .S.N. Fatigue; [place] [address] Left Testicular Pain [address] [facility] [phone] Social History Tobacco Use Types Packs/Day Years [...] 06/17/2019 relatives? How often do you attend mu-ism or buddhist Patient refused 06/17/2019 services? Do you belong to any clubs or organizations such as Patient refused 06/17/2019 mu-ism groups, unions, [employer] or athletic groups, or school groups? 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 documented as of this encounter Last Filed Vital Signs Vital Sign Reading Time Taken Comments Blood Pressure 110/68 08/26/2019 11:52 AM BIAS CUTTING MACHINE OPERATOR VERTICAL Pulse 74 08/26/2019 11:52 AM BIAS CUTTING MACHINE OPERATOR VERTICAL Temperature - - Respiratory Rate - - Oxygen Saturation - - Inhaled Oxygen Concentration - - Weight 71.2 kg (156 lb 15.5 oz) 08/26/2019 11:52 AM BIAS CUTTING MACHINE OPERATOR VERTICAL Height 174.5 cm (5' 8.7) 08/26/2019 11:52 AM BIAS CUTTING MACHINE OPERATOR VERTICAL Body Mass Index 23.38 08/26/2019 11:52 AM BIAS CUTTING MACHINE OPERATOR VERTICAL documented in this encounter H&P Notes Bartolo Velasquez, ROBERT, C.N.P., M.S.N. - 08/26/2019 12:00 PM CST SUBJECTIVE CHIEF COMPLAINT / REASON FOR VISIT Fermin Lopez is a 29 y.o. male who presents for evaluation of Annual Exam. HISTORY OF PRESENT ILLNESS Fermin Lopez is a delightful 29 y.o. male here for his annual exam. 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 He does not use tobacco products, denies alcohol use, and denies drug use. He does try to maintain a healthy diet but it is difficult due to his job. Patient reports having felt testicular pressure on the left side for 1 week 3 weeks ago. It resolvedspontaneously and he has not experienced since. He denies trauma to the testicle or repetitive activities. He also had a sharp pain 3 weeks ago when he sneezed in his posterior scrotum that lasted justfor a few seconds. He denies urethral discharge, burning with urination, new sexual partners, testicular masses, history of testicular cancer, family history of testicular cancer. He also complains of fatigue for the past 2 weeks. 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 He thinks he sleeps okay though he does grind his teeth. His fiancee has not mentioned that he snores. He denies weight loss, family history of thyroid disorders, black tarry stool, blood in his stool, blood in his urine, swollen lymph nodes. REVIEW OF SYSTEMS General: No complaints of unintentional weight loss, recent fever. EENT: No complaints of vision changes or hearing loss. Pulmonary: No complaints of shortness of breath, cough, or wheezing. Cardiac: No complaints about chest pain, irregular beats, or swelling in extremities. Gastrointestinal: No complaints about uncontrolled heartburn, vomiting, constipation, diarrhea, blood in bowel movements, or abdominal pain. Reproductive: See HPI. Genitourinary: No complaints of problems with urination. Musculoskeletal: No complaints of muscle weakness. No complaints of joint pain. Integumentary: No complaints of skin rashes, skin sores, or change in moles. Neurological: No concerns about significant headaches, persistent weakness or numbness on one side of body, or falls. MEDICAL HISTORY Patient Active Problem List Diagnosis ??? Fracture Little Finger Distal Phalanx Nondisplaced Subsequent With Routine Healing Left SURGICAL HISTORY No past surgical history on file. FAMILY HISTORY Family History Problem Relation Age of Onset ??? Skin cancer Paternal Grandmother ??? Coronary artery disease Father ??? Hypertension Maternal Grandmother ??? Hyperlipidemia Maternal Grandmother ??? Arthritis Maternal Grandmother ??? Diabetes mellitus type II Maternal Grandmother SOCIAL HISTORY Social History Socioeconomic History ??? Marital status: Single Spouse name: None ??? Number of children: None ??? Years of education: None ??? Highest education level: Bachelor's degree (e.g., BA, AB, BS) Occupational History ??? 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 Financial resource strain: Not hard at all ??? Food insecurity Worry: Never true Inability: Never true ??? Transportation needs Medical: No Non-medical: No Tobacco Use ??? Smoking status: Never Smoker ??? Smokeless tobacco: Never Used Substance and Sexual Activity ??? Alcohol use: No Frequency: Never Binge frequency: Never ??? Drug use: No ??? Sexual activity: Yes Partners: Female control/protection: Condom Lifestyle ??? Physical activity Days per week: 3 days Minutes per session: 20 min ??? Stress: Only a little Relationships ??? Social connections Talks on phone: Patient refused Gets together: Patient refused Attends buddhist service: Patient refused Active member of club or organization: Patient refused Attends meetings of clubs or organizations: Patient refused Relationship status: Living with partner ??? Intimate partner violence Fear of current or ex partner: None Emotionally abused: None Physically abused: None Forced sexual activity: None Other Topics Concern ??? None Social History Narrative ??? None MEDICATIONS No current outpatient medications on file prior to visit. No current facility-administered medications on file prior to visit. ALLERGIES No Known Allergies OBJECTIVE VITAL SIGNS BP 110/68 (BP Location: Right arm, Patient Position: Sitting, Cuff Size: Regular) Pulse 74 Ht 174.5 cm Wt 71.2 kg BMI 23.38 kg/m?? PHYSICAL EXAMINATION General: Patient is alert and oriented and in no acute distress. Capable of full communication without difficulty. Patient is polite and cooperative. Appropriately dressed and normal hygiene. HEENT: Normocephalic, atraumatic. Pupils are equal, round and reactive to light. Auditory canals patent, tympanic membranes are pearly nuno with adequate visualization of bony prominences. Oropharynx without lesion of mucosa. Pharynx rises symmetrically without exudate. Dentition grossly intact. Neck: No palpable lymph nodes, no thyroid enlargement or nodules. Cardiac: Regular rate and rhythm. No murmurs, gallops or rubs noted. Pulmonary: Clear to auscultation bilaterally. No expiratory wheeze. No accessory muscles of respiration noted. Abdomen: Nontender to palpation. No hepatosplenomegaly. No mass. Normal bowel sounds in all 4 quadrants. Genitalia/groin: Normal external male genitalia. Testicles without mass. No inguinal hernia. Musculoskeletal: Full range of motion and strength in all extremities. Extremities: No neurovascular compromise. No cyanosis, clubbing or edema. Integumentary: No lesions or abnormal nevi. A full head to toe skin exam was not performed. Neurological: Cranial nerves II through XII are grossly intact. Deep tendon reflexes are 2+ bilaterally in patellar tendons. Mental: Affect is normal. Speech is clear and coherent. Thought process is appropriate. Makes good eye contact. ASSESSMENT / PLAN DIAGNOSIS 1. General Medical Examination Adult 2. Screening For Venereal Disease 3. Human Immunodeficiency Virus Screening I recommend preventative behaviors including healthy diet, regular exercise, 100% seatbelt use, dental visits every 6 months, annual eye exams, safe sun exposure, and home safety. Patient will return in one year for another annual exam, sooner if concerns arise. Routine Health Maintenance. Colon cancer screening: Due at age 51. Fasting blood glucose: Deferred. Lipid profile: Deferred. -chlamydia/gonorrhea and HIV screening performed. 4. Fatigue -discussed my findings with the patient and possible etiologies. At this time the patient declines any further evaluation and will wait to see if his fatigue improves. 5. Left Testicular Pain -patient had a normal examination and his symptoms sounded fairly benign. Discussed possible etiologies with the patient and at this time we will not do any further testing other than the chlamydia/gonorrhea screen. Bartolo Velasquez APRN, C.N.Maurizio, M.S.N. CUTTING MACHINE OPERATOR VERTICAL documented in this encounter Plan of Treatment Not on filedocumented as of this encounter Results HIV-1/-2 Ag and Ab Screen, Plasma (09/02/2019 11:17 AM BIAS CUTTING MACHINE OPERATOR VERTICAL) P athologist Signature HIV Ag/Ab Negative Negative 09/03/2019 [facility] Screen, P 3:04 PM BIAS CUTTING MACHINE OPERATOR VERTICAL Comment: Negative result does not rule out HIV in fection. If exposure to HIV infection occurred <14 d ays ago, contact the laboratory to request additi on of HIV-1 RNA detection / quantification test. HIV-1 p24 Ag Screen, P Negative Negative 09/03/2019 3:04 P M BIAS CUTTING MACHINE OPERATOR VERTICAL [facility] Comment: Negative result does not rule out HIV in fection. If exposure to HIV infection occurred <14 d ays ago, contact the laboratory to request additi on of HIV-1 RNA detection / quantification test. HIV-1 Ab Screen, P Negative Negative 09/03/2019 3:04 PM CS T [facility] Comment: Negative result does not rule out HIV in fection. If exposure to HIV infection occurred <14 d ays ago, contact the laboratory to request additi on of HIV-1 RNA detection / quantification test. HIV-2 Ab Screen, P Negative Negative 09/03/2019 3:04 PM CS T [facility] Comment: Negative result does not rule out HIV in fection. If exposure to HIV infection occurred <14 d ays ago, contact the laboratory to request additi on of HIV-1 RNA detection / quantification test. Specimen Anatomical Collection Method Collection Time Receive d Time (Source) Location / / Volume Laterality Blood (Blood, 09/02/2019 11:17 09/03/2019 Venous) AM BIAS CUTTING MACHINE OPERATOR VERTICAL 11:14 AM BIAS CUTTING MACHINE OPERATOR VERTICAL Bartolo Velasquez APRN, C.N.P., M.S.N. LAB MICROBIOLOGY - BLOOD ORDERABLES Performing Organization Address City/[facility]/ZIP Code Phon e Number [facility]- [address] [place], [place] [address] [place] [address] System in [place] [address] [place] [address] Chlamydia / Gonorrhoeae Amplified RNA (09/02/2019 11:15 AM BIAS CUTTING MACHINE OPERATOR VERTICAL) [facility] gist Method Time Signature Source Urine, 09/02/2019 [facility] Urine, First 6:36 PM BIAS CUTTING MACHINE OPERATOR VERTICAL Voided Chlamydia Negative Negative 09/02/2019 [facility] trachomatis 6:36 PM BIAS CUTTING MACHINE OPERATOR VERTICAL amplified RNA Source Urine, 09/02/2019 [facility] Urine, First 6:36 PM BIAS CUTTING MACHINE OPERATOR VERTICAL Voided Neisseria Negative Negative 09/02/2019 [facility] gonorrhoeae 6:36 PM BIAS CUTTING MACHINE OPERATOR VERTICAL amplified RNA Specimen Anatomical Collection Method Collection Time Receive d Time (Source) Location / / Volume Laterality Varies (Urine, 09/02/2019 11:15 0 2:08 First Voided) AM BIAS CUTTING MACHINE OPERATOR VERTICAL PM BIAS CUTTING MACHINE OPERATOR VERTICAL Bartolo Velasquez APRN, C.N.P., M.S.N. LAB MICROBIOLOGY - GENERAL ORDERABLES Performing Organization Address City/[facility] Phon e Number [facility]- [address] [place] [id number] [place] [address] System in [address] documented in this encounter Visit Diagnoses Diagnosis General Medical Examination Adult - Prim maggi Screening For Venereal Disease Human Immunodeficiency Virus Screening Fatigue Left Testicular Pain documented in this encounter Care Teams Waiter/Waitress Relationship Specialty Start Date End Date Suzanna Sofia M.D. PCP - General 04/03/19 [address] [place] [phone] documented as of this encounter
--- OUTSIDE RECORDS SUMMARY | 2022-05-31 15:56 | XMS_ITS | Encounter Summary ---
:1990 Author Organization [facility] Address [address] [place] [address] Care Team Providers Name Role Phone Unavailable Primary Care Provider Unavailable Encounter Details Date Type Department Care Team Description 02/07/2015 Hospital Encounter HX [facility] Grace Taylor ed R, D.O. [address] [place], [place] [address] (Wo rk) Social History Tobacco Use Types Packs/Day Years [...] 06/17/2019 relatives? How often do you attend lutheran or uatsdin Patient refused 06/17/2019 services? 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 - 02/07/2015 4:20 PM CDT PPD Reading PPD Reading Entered On: 02/07/2015 16:36 CDT Performed On: 02/07/2015 16:20 CDT by CHICA MTZ RN PPD Reading MM of Induration : 10 mm PPD Interpretation : Positive PPD Placed On : Right inner forearm PPD Date/Time Administered : 02/05/2015 16:05 CDT PPD Reading Comment : PPD administered at [facility], form was faxed to [facility] at , pt states that he has no risk factors. Paper copy in records CHICA MTZ RN - 02/07/2015 16:31 CDT Source: [facility] POWERCHART Document Id: [id number] documented in this encounter Plan of Treatment Not on filedocumented as of this encounter Procedures Procedure Name Priority Date/Time Associated Diagnosis Comme nts HX TB SKIN TEST-LAB Routine 02/07/2015 4:20 PM Re sults for this CDT procedure are i n the results section. documented in this encounter Results HX TB SKIN TEST-LAB (02/07/2015 4:20 PM CDT) P athologist Signature TB Skin Test 10 MM POWERCHART TB Skin Test Positive POWERCHART Specimen (Source) Anatomical Collection Method Collection Time Re ceived Time Location / / Volume Laterality 02/07/2015 4:20 PM CDT Historical Provider LAB HISTORICAL ORDERS Performing Organization Address City/State/ZIP Code Phon e Number POWERCHART documented in this encounter Visit Diagnoses Not on filedocumented in this encounter
--- OUTSIDE RECORDS SUMMARY | 2022-05-31 15:56 | XMS_ITS | Encounter Summary ---
:1990 Author Organization [facility] Address [address] [place] [address] Care Team Providers Name Role Phone Suzanna Sofia M.D. Primary Care Provider [phone] Reason for Referral Outpatient (Routine) - Closed Specialty Diagnoses / Procedures Referred By Contact Refer red To Contact Orthopedic Surgery Diagnoses recheck Rodolfo Liang, [facility] [address] [place] [address] Referral ID Status Reason Start Date Expiration Date Visits Requ ested Visits Authorized [id number] Closed 06/21/2019 06/20/2020 1 1 ORT OPERATIONS COORDINATOR Reason for Visit Reason Comments Follow-up DOI-06/11/2019. Work comp. Injury Appointment Request (Routine) - Closed Specialty Diagnoses / Procedures Referred By Contact Refer red To Contact Orthopedic Surgery Diagnoses n/a [facility] Procedures n/a [address] [place] [address] Referral ID Status Reason Start Date Expiration Date Visits Requ ested Visits Authorized [id number] Closed 06/13/2019 06/12/2020 1 1 Encounter Details Date Type Department Care Team Description 06/21/2019 Office Visit Department of Rodolfo Liang, Fracture Little Finger Orthopedic Surgery in [facility] Distal Phalanx [place], [place] [address] Displaced Closed [address] [place] Initial Left (Primary [place] [id number] Dx) [id number] Social History Tobacco Use Types Packs/Day Years [...] How often do you attend sabianist or cheondoism Patient refused 06/17/2019 services? 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 - 06/21/2019 11:00 AM CST Worker's compensation visit Employer: [employer] Date of injury: 06/11/2019 REASON FOR VISIT: Left small finger fracture HPI: Fermin Lopez is a 29 y.o. male who presents for evaluation of left pinky finger pain. 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 When he was trying to get the leash on the dog, the dog jumped from the car, twisting his pinky in the dog's collar. Patient has never injured this hand in the past. He is right hand dominant. Since date of evaluation he has been maintained in an [employer] baseball splint. This is been maintaining his distal phalanx in correct alignment without any complications. Patient has been kavita taping this to the 2 fingers next to it. He reports that pain has been decreasing significantly over the last several days. Hedenies any complications. He does report slight decreased sensation at the tip of the finger. He reports bruising and swelling are starting to resolve. Patient denies any recent weight change, fever, chills, night sweats, nausea, vomiting, lightheadedness, dizziness, chest pain or pressure. Please see Orthopedic intake form that is scanned into the EMR for complete list of medication, allergies, past medical history, past family history, past social history, and complete review of systems. VITALS: Pulse 70 Resp 14 Wt 72.6 kg BMI 23.92 kg/m?? PHYSICAL EXAM: General: This is a well-nourished well-developed male. He is alert and oriented x3. He is in no acute distress. He is cooperative and responds appropriately questions. Musculoskeletal: Examination of the left hand reveals mild bruising and swelling. Range of motion testing not performed secondary nature of injury. Tenderness with palpation of the distal phalanx of the small finger. He is neurovascularly intact distally. Capillary refill less than 2 seconds. No signif icant bony angulation is seen. IMAGING: X-ray of the left small finger was reviewed from 06/12/2019.?? IMPRESSION: Acute minimally displaced and comminuted fracture of the left fifth distal phalangeal shaft. Small volar surface soft tissue defect. Mild associated soft tissue swelling. This finding can be associated with open fracture, correlate clinically. No radiopaque foreign bodies. X-ray was obtained today.?? IMPRESSION: Persistent, minimally displaced bleeding oriented fracture involving the mid, distal portion of the distal phalanx of the right fifth finger. Distal right fifth finger fracture component is dorsally, ulnarly displaced on today's evaluation approximately 2 mm. If there is evidence of potential nailbed involvement this should be considered a potentially open fracture. No evidence of interval healing. ?? ASSESSMENT AND PLAN: Distal right finger fracture Did discuss with Fermin that we would recommend no work until he is 2 weeks out from injury. This places him at 06/25/2019. After that he can return to work with restrictions as spelled out in his return to work form. Recommend that he continue to wear this splint until he is 6 weeks out from injury. We will see him back in clinic on 07/17/2018. We will get x-rays prior to his appointment. He is leaving for a vacation the next week and therefore he will need to be seen prior to his trip. Patient is in understanding this. An additional baseball splint was given to him today. Total time of visit: 30 minutes, 25 minutes spent on counseling and coordination of care. This note has been written using fluency direct voice recognition dictation. Typographical errors may occur. For any concerns regarding accuracy or clarification of this note, please contact the author. Answers for HPI/ROS submitted by the patient on 06/17/2019 No general issues: Yes No eye issues: Yes No ENT issues: Yes Rapid or fluttering heart beats: Yes No respiratory issues: Yes No GI issues: Yes No muscle/bone issues: Yes No skin issues: Yes No neurologic issues: Yes No mental health issues: Yes No blood/lymph issues: Yes No urinary/reproductive issues: Yes ORT OPERATIONS COORDINATOR documented in this encounter Plan of Treatment Scheduled Referrals Name Type Priority Associated Order Schedule Diagnoses Orthopedic Surgery Outpatient Referral Routine Ex pected: office visit 07/17/2019 (clinic) (Approximate), Expires: 06/21/2022 documented as of this encounter Results DX Fingers Left 2+ Views (07/16/2019 10:14 AM AIRPORT OPERATIONS COORDINATOR) Anatomical Region Laterality Modality Upper Extremity, Fingers, Musculoskeletal RST LOS, Left Digital Radiography Musculoskeletal ARZ LOS, Muskuloskeletal FLA LOS Specimen (Source) Anatomical Collection Method Collection Time Re ceived Time Location / / Volume Laterality 07/16/2019 10:15 AM AIRPORT OPERATIONS COORDINATOR Impressions 07/16/2019 10:17 AM AIRPORT OPERATIONS COORDINATOR Transverse, slightly comminuted, minimally displaced fracture involving the central portion of the dis johnnie phalanx of the left fifth finger. If there is evidence of nailbed injury this be considered a potentially open fracture. Slightly increasing soft tissue swelling along the dorsal aspect of the distal left fifth finger. Fracture plane remains visible. Minimal healing since prior evaluation. Narrative 07/16/2019 10:17 AM AIRPORT OPERATIONS COORDINATOR EXAM: DX FINGERS LEFT 2+ VIEWS COMPARISON: June 12, 2019, June 092018 Procedure Note Jorge Fair M.D. - 07/16/2019Forma tting of this note might be different from the original. EXAM: DX FINGERS LEFT 2+ VIEWS COMPARISON: June 12, 2019, June 092018 IMPRESSION: Transverse, slightly comminuted, minimal ly displaced fracture involving the central portion of the dis johnnie phalanx of the left fifth finger. If there is evidence of nailbed injury this be considered a potentially open fracture. Slightly increasing soft tissue swelling along the dorsal aspect of the distal left fifth finger. Fracture plane remains visible. Minimal healing since prior evaluation. Rodolfo Liang P.A.-C. IMG DIAGNOSTIC IMAGING PROCE DURES DX Fingers Left 2+ Views (06/21/2019 10:21 AM AIRPORT OPERATIONS COORDINATOR) Anatomical Region Laterality Modality Upper Extremity, Fingers, Musculoskeletal RST LOS, Left Computed Radiography Musculoskeletal ARZ LOS, Muskuloskeletal FLA LOS Specimen (Source) Anatomical Collection Method Collection Time Re ceived Time Location / / Volume Laterality 06/21/2019 10:24 AM AIRPORT OPERATIONS COORDINATOR Impressions 06/21/2019 10:26 AM AIRPORT OPERATIONS COORDINATOR Persistent, minimally displaced bleeding oriented fracture involving the mid, distal portion of the distal ph alanx of the right fifth finger. Distal right fifth finger fracture component is dorsally, ulnarly displaced on today's evaluation approximately 2 mm. If there is evidence of potential nailbed involvement this should be considered a potentially open fracture. No evidence of interval healing. Narrative 06/21/2019 10:26 AM AIRPORT OPERATIONS COORDINATOR EXAM: DX FINGERS LEFT 2+ VIEWS COMPARISON: June 12, 2019. Procedure Note Jorge Fair M.D. - 06/21/2019Forma tting of this note might be different from the original. EXAM: DX FINGERS LEFT 2+ VIEWS COMPARISON: June 12, 2019. IMPRESSION: Persistent, minimally displaced bleeding oriented fracture involving the mid, distal portion of the distal ph alanx of the right fifth finger. Distal right fifth finger fracture component is dorsally, ulnarly displaced on today's evaluation approximately 2 mm. If there is evidence of potential nailbed involvement this should be considered a potentially open fracture. No evidence of interval healing. Rodolfo Liang P.A.-C. IMG DIAGNOSTIC IMAGING PROCE DURERYN documented in this encounter Visit Diagnoses Diagnosis Fracture Little Finger Distal Phalanx Di splaced Closed Initial Left - Primary Fracture Little Finger Distal Phalanx Di splaced Closed Initial Left Fracture Little Finger Distal Phalanx Di splaced Closed Initial Left documented in this encounter Care Teams Charge Account Clerk Relationship Specialty Start Date End Date Suzanna Sofia M.D. PCP - General 04/03/190 [place] [address] documented as of this encounter
--- OUTSIDE RECORDS SUMMARY | 2022-05-31 15:56 | XMS_ITS | Encounter Summary ---
:1990 Author Organization [facility] Address [address] [place] [address] Care Team Providers Name Role Phone Suzanna Sofia M.D. Primary Care Provider [phone] Encounter Details Date Type Department Care Team Description 09/02/2019 Hospital Encounter [facility] J, EDGE FINISHER, Virus Sc reening in [facility] [place], [place] M.S.N. [address] [facility] [address] [place], [place] [phone] [address] Social History Tobacco Use Types Packs/Day [...] 06/17/2019 relatives? How often do you attend restorationist or hindu Patient refused 06/17/2019 services? 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 documented in this encounter Results HIV-1/-2 Ag and Ab Screen, Plasma (09/02/2019 11:17 AM MANAGER ENTERPRISE CONTENT MANAGEMENT) P athologist Signature HIV Ag/Ab Negative Negative 09/03/2019 [facility] Screen, P 3:04 PM MANAGER ENTERPRISE CONTENT MANAGEMENT Comment: Negative result does not rule out HIV in fection. If exposure to HIV infection occurred <14 d ays ago, contact the laboratory to request additi on of HIV-1 RNA detection / quantification test. HIV-1 p24 Ag Screen, P Negative Negative 09/03/2019 3:04 P M MANAGER ENTERPRISE CONTENT MANAGEMENT [facility] Comment: Negative result does not rule [...] Blood (Blood, 09/02/2019 11:17 09/03/2019 Venous) AM MANAGER ENTERPRISE CONTENT MANAGEMENT 11:14 AM MANAGER ENTERPRISE CONTENT MANAGEMENT Bartolo Velasquez APRN, C.N.P., M.S.N. LAB MICROBIOLOGY - BLOOD ORDERABLES Performing Organization Address City/State/ZIP Code Phon e Number [facility]- [address] [place] [address] [phone] [facility] [place] [address] [address] documented in this encounter Visit Diagnoses Diagnosis Human Immunodeficiency Virus Screening documented in this encounter Care Teams Financial Institution President Relationship Specialty Start Date End Date Suzanna Sofia M.D. PCP - General 04/03/[address] [place] [address] documented as of this encounter
--- OUTSIDE RECORDS SUMMARY | 2022-05-31 15:56 | XMS_ITS | Encounter Summary ---
:1990 Author Organization [facility] Address [address] [place] [address] Care Team Providers Name Role Phone Unavailable Primary Care Provider Unavailable Reason for Visit Reason Comments Irregular Heart Beat Establish Care Appointment Request (Routine) - Closed Specialty Diagnoses / Procedures Referred By Contact Refer red To Contact Community Internal Medicine Referral ID Status Reason Start Date Expiration Date Visits Requ ested Visits Authorized [id number] Closed 08/01/2017 01/28/2018 1 1 Encounter Details Date Type Department Care Team Description 08/01/2017 Office Visit Department of Cora Dooley Palpitati ons (Primary Dx); Internal Medicine in [facility] C.N.PMary, [facility] y; [place], [place] D.N.P. Health Maintenance Examination Adult [address] [place] [phone] Social History Tobacco Use Types Packs/Day Years [...] 06/17/2019 relatives? How often do you attend hindu or church Patient refused 06/17/2019 services? 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 documented as of this encounter Last Filed Vital Signs Vital Sign Reading Time Taken Comments Blood Pressure 120/72 08/01/2017 1:44 PM ADULT BASIC EDUCATION TEACHER Pulse 68 08/01/2017 1:44 PM ADULT BASIC EDUCATION TEACHER Temperature - - Respiratory Rate 17 08/01/2017 1:44 PM ADULT BASIC EDUCATION TEACHER Oxygen Saturation - - Inhaled Oxygen Concentration - - Weight 68 kg (149 lb 14.6 oz) 08/01/2017 1:44 PM ADULT BASIC EDUCATION TEACHER Height - - Body Mass Index 21.83 08/26/2016 10:16 AM ADULT BASIC EDUCATION TEACHER documented in this encounter Progress Notes Cora Dooley, Jeana JONES., C.N.P. - 08/01/2017 1:45 PM CST SUBJECTIVE CHIEF COMPLAINT / REASON FOR VISIT Fermin Lopez is a 27 y.o. male who presents for evaluation of Irregular Heart Beat and To Establish Care. HISTORY OF PRESENT ILLNESS HPI Patient is a very pleasant 27-year-old male at the clinic today for evaluation of sensation of irregular heartbeat and to establish care with a new provider. He reports that his symptoms began approximately 1 week ago when he noticed a light fluttering in his chest. He noticed that it is worse when hepays more attention to it. Reports that he has no pain or associated symptoms, however he seems to notice that his heart rate increases and decreases when he has the sensation. Last evening he had a home pulse ox meter and put it on and noticed that his pulse fluctuated as he watched it. He reports that symptoms are aggravated by focusing on them as well as increased stress and worry. He has noticed is also more prevalent when he is laying in bed trying to fall sleep. Has not had any change in diet or exercise recently however he does report that his diet has become progressively worse over the last few months with increasing fast food, he has been trying to make a conscious effort to eat more fresh fruits and vegetables lately. Patient also has been cutting back on his caffeine. He used to drink1-2 caffeinated sodas daily but has cut back to nearly no caffeine. Symptoms began after he cut backon his caffeine. They are alleviated with distraction. He is not currently on any prescription or ove [id number] medications or supplements. 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 He does reports some increased fatigue. He has no cardiac history. He denies any chest pain, shortness of breath, sweating, fever, fatigue, increased bleeding or bruising or activity intolerance. Patient did have a full cardiac workup a couple ofyears ago for acceptance into police force including EKG and stress test all of which were negative at that time. Overall patient has noticed that his mood and anxiety have been worse recently. 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 Hedid notice the symptoms starting however before that. Over the last couple of weeks he has noticed that his mood has been slightly decreased and he has been a bit more irritable. He says overall he hasa bit of a worrier and has had difficulty all his life relaxing. He does report he has some racing thoughts which have been worse over the last couple weeks. Anxiety has been increased. He has not found any specific triggers for the anxiety but rather it is generalized. Generally he feels he has good s upport from his girlfriend and family. Outside of these new symptoms patient is overall very healthy. No history of any chronic conditions.Not on any prescription medications. No surgical history. No history of recent major illnesses. Health maintenance: Immunizations: Last recorded tetanus vaccine on our record was in 2004, however patient believes that he received a booster of this when he was in [place] before he started his police job. He has requested to try to find documentation of this vaccine instead of receiving 1 today. Mental health: Overall stable, see HPI. Some increased anxiety recently Diet and exercise: See HPI Bone health: Takes daily calcium and vitamin D supplementation Skin: No concerns for new or changing moles or skin spots. encouraged regular sun screen use. SOCIAL HISTORY Denies tobacco use. Denies alcohol use. He has been drastically cutting back on his caffeine from 1-2 sodas daily to no caffeine recently. 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 He has noticed an increase in work stress lately. He is not but has a girlfriend and 2 dogs. PAST MEDICAL/SURGICAL HISTORY No history of any past medical concerns MEDICATIONS Patient not currently on any medications ALLERGIES No Known Allergies REVIEW OF SYSTEMS Constitutional: Positive for fatigue. Negative for fever. Eyes: Negative for visual problems. ENT: Negative for sinus congestion. Respiratory: Negative for dyspnea. Cardiovascular: Positive for rapid or fluttering heart beat. Negative for chest pain, pressure or tightness and swelling in the legs or feet. Gastrointestinal: Negative for heartburn, nausea and vomiting. Hematologic: Negative for bruises or bleeds easily. Musculoskeletal: Negative for arthralgias and pain or stiffness in the joints. Neurological: Negative for light-headedness, loss of balance or tendency to fall easily and headaches. Psychiatric/Behavioral: Positive for feeling nervous, anxious, or on edge in past two weeks. Negative for feeling down, depressed, or hopeless over past two weeks and not being able to stop or control worrying over past two weeks. OBJECTIVE PHYSICAL EXAM Physical Exam GENERAL: Patient alert and oriented, appearing in no acute distress. Well groomed and dressed appropriately. HEAD: Normocephalic, atraumatic EYES: Sclerae clear without injection. Conjunctivae without drainage, erythema or matting. EARS/NOSE/THROAT: Oropharynx moist, pink without exudate. NECK: Supple without lymphadenopathy. Trachea midline. Thyroid nonpalpable RESPIRATORY: Clear to auscultation bilaterally posteriorly without rhonchi, wheezes, or crackles. Nocough on exam today. Respirations are easy and unlabored CARDIAC: S1 and S2 present with regular rate and rhythm. No murmurs or S3, S4 auscultated. ABDOMEN: Soft, nondistended and nontender to palpation without palpable masses or organomegaly. Normoactive bowel sounds. MUSCULOSKELETAL: Gait normal. normal movement of all extremities. No upper or lower extremity edema NEURO: He is alert and Oriented x3. Responds appropriately to questions. Follows commands without difficulty. Pupils equal and reactive to light. Cranial nerves II through XII grossly intact. EOMs intact. No unilateral or focal weakness, no involuntary movements. Adequate coordination. S SKIN:Warm and dry. Intact and without rashes on visible areas VITAL SIGNS: BP 120/72 (BP Location: Right arm, Patient Position: Sitting, Cuff Size: Regular) Pulse 68 Resp 17 Wt 68 kg BMI 21.83 kg/m?? Results for orders placed or performed in visit on 08/01/17 CBC with Differential Result Value Ref Range Hemoglobin, B 15.3 13.2 - 16.6 g/dL Hematocrit 43.8 38.3 - 48.6 % Erythrocytes 4.92 4.35 - 5.65 x10(12)/L MCV 89.0 78.2 - 97.9 fL RBC Distrib Width 11.8 11.8 - 14.5 % Platelet Count 242 135 - 317 x10(9)/L Leukocytes 3.7 3.4 - 9.6 x10(9)/L Neutrophils 1.99 1.56 - 6.45 x10(9)/L Lymphocytes 1.26 0.95 - 3.07 x10(9)/L Monocytes 0.41 0.26 - 0.81 x10(9)/L Eosinophils 0.05 0.03 - 0.48 x10(9)/L Basophils 0.01 0.01 - 0.08 x10(9)/L BMP (Basic Metabolic Panel) Result Value Ref Range Potassium, S 4.9 3.6 - 5.2 mmol/L Sodium, S 141 135 - 145 mmol/L Chloride, S 101 98 - 107 mmol/L Bicarbonate, S 30 (H) 22 - 29 mmol/L Anion Gap 10 7 - 15 Bld Urea Nitrog(BUN), S 14 8 - 24 mg/dL Creatinine, S 1.05 0.74 - 1.35 mg/dL eGFR Non- >90 >=60 mL/min/BSA eGFR- >90 >=60 mL/min/BSA Calcium, Total, S 10.2 (H) 8.9 - 10.1 mg/dL Glucose, Random, S 87 70 - 140 mg/dL ASSESSMENT / PLAN 1. Palpitations: Discussed with patient possible differentials for palpitations. Explained him that most causes are benign and that it often resolved on his own. However since symptoms have persisted for over a week and seem to be getting worse I recommended a 48 hour Holter monitor to rule out any cardiac abnormalities. Also ordered CBC and BMP to rule out anemia or electrolyte disturbances. Patientwas agreeable to doing the lab studies today and both came back within normal limits. However he hasrequested to wait another week before during the Holter monitor to see if symptoms resolved on theirown. I told him I thought this would be acceptable but did recommend he follow through with that if symptoms are not improving. 2. Generalized anxiety: Discussed with patient that overall increase in anxiety could be contributing to his cardiac symptoms. We discussed possibility of treating his decreasing mood and anxiety either pharmacologically or for non pharmacologically. At this time patient is not at a stage where he thinks he is in need of any medications. I discussed that this is a possibility that could be considereddown the road if symptoms do not improve or worsen over time. Also offered short-term therapy with our psychologist social. Patient declined at this time and said he will work on researching relaxation techniques on his own. Encouraged him to keep an eye on things and reach out to me if he would like to discuss further symptom management and treatment options for his anxiety. 3. Health maintenance: Unclear if patient is due for Tdap vaccine. He will look at his previous health records and see if he receive this vaccine somewhere else. If so he will follow up with us with that information. If not I would recommend tetanus vaccine especially considering his line of work. I have recommended follow-up after we receive the results of the Holter monitor. Otherwise recommended yearly health maintenance exams. He can follow up in the meantime as needed for any other ongoing concerns. Patient verbalized understanding of the plan of care and was in agreement. All questions were answered today. Total time 30 minutes, 25 minutes spent counseling on anxiety and possible etiology of palpitations. T BASIC EDUCATION TEACHER documented in this encounter Plan of Treatment Not on filedocumented as of this encounter Procedures Procedure Name Priority Date/Time Associated Diagnosis Comme nts CBC WITH Routine 08/01/2017 2:30 PM Palpitations Results f or this DIFFERENTIAL, B ADULT BASIC EDUCATION TEACHER procedure ar e in the results section. BASIC METABOLIC Routine 08/01/2017 2:30 PM Palpitations Result s for this PANEL, S/P ADULT BASIC EDUCATION TEACHER procedure are i n the results section. documented in this encounter Results (ABNORMAL) BMP (Basic Metabolic Panel) (08/01/2017 2:30 PM ADULT BASIC EDUCATION TEACHER) P athologist Signature Potassium, S 4.9 3.6 - 5.2 08/01/2017 [facility] mmol/L 3:29 PM [facility] Sodium, S 141 135 - 145 08/01/2017 [facility] mmol/L 3:29 PM [facility] Chloride, S 101 98 - 107 08/01/2017 [facility] mmol/L 3:29 PM [facility] Bicarbonate, S 30 (H) 22 - 29 08/01/2017 [facility] mmol/L 3:29 PM [facility] Anion Gap 10 7 - 15 08/01/2017 [facility] 3:[address] [facility] BUN (Blood Urea 14 8 - 24 08/01/2017 [facility] Nitrogen), S mg/dL 3:[address] [facility] Creatinine 1.05 0.74 - 08/01/2017 [facility] 1.35 mg/dL 3:[address] [facility] eGFR >90 >=60 08/01/2017 [facility] Non-Black/Afric mL/min/BSA 3:29 PM [facility] EM- an [place] [facility] Comment: ----ADDITIONAL INFORMATION---- Estimated GFR calculated using the 2009 CKD_EPI creatinine equation. eGFR Black/ >90 >=60 mL/min/BSA 08/01/2017 3:29 PM [facility] Comment: ----ADDITIONAL INFORMATION---- Estimated GFR calculated using the 2009 CKD_EPI creatinine equation. Calcium, Total, S 10.2 (H) 8.9 - 10.1 mg/dL 08/01/2017 3 :29 PM [facility] Glucose, S 87 70 - 140 mg/dL 08/01/2017 3:29 PM [facility] Specimen Anatomical Collection Method Collection Time Receive d Time (Source) Location / / Volume Laterality Blood (Blood, 08/01/2017 2:30 PM 08/01/19 18 2:32 Venous) ADULT BASIC EDUCATION TEACHER [facility] Cora Dooley APRN C.N.P., D.N.P. LAB BLOOD ADD-ON Performing Organization Address City/State/ZIP Code Phon e Number [facility] [address] [place] [id number] LAB CBC with Differential (08/01/2017 2:30 PM [facility]) athologist Signature Hemoglobin 15.3 13.2 - 08/01/2017 [facility] 16.6 g/dL 2:[address] [facility] Hematocrit 43.8 38.3 - 08/01/2017 [facility] 48.6 % 2:[address] [facility] Erythrocytes 4.92 4.35 - 08/01/2017 [facility] 5.65 2:41 PM ADULT BASIC EDUCATION TEACHER HEALTH x10(12)/L [facility] MCV 89.0 78.2 - 08/01/2017 [facility] 97.9 fL 2:41 PM [facility] RBC Distrib Width 11.8 11.8 - 08/01/2017 [facility] 14.5 % 2:41 PM [facility] Platelet Count 242 135 - 317 08/01/2017 [facility] x10(9)/L 2:41 PM [facility] Leukocytes 3.7 3.4 - 9.6 08/01/2017 [facility] x10(9)/L 2:41 PM [facility] Neutrophils 1.99 1.56 - 08/01/2017 [facility] 6.45 2:41 PM ADULT BASIC EDUCATION TEACHER HEALTH x10(9)/L [facility] [place] [facility] Lymphocytes 1.26 0.95 - 08/01/2017 [facility] 3.07 2:41 PM ADULT BASIC EDUCATION TEACHER HEALTH x10(9)/L [facility] Monocytes 0.41 0.26 - 08/01/2017 [facility] 0.81 2:41 PM ADULT BASIC EDUCATION TEACHER HEALTH x10(9)/L [facility] [place] [facility] Eosinophils 0.05 0.03 - 08/01/2017 [facility] 0.48 2:41 PM ADULT BASIC EDUCATION TEACHER HEALTH x10(9)/L [facility] [place] [facility] Basophils 0.01 0.01 - 08/01/2017 [facility] 0.08 2:41 PM ADULT BASIC EDUCATION TEACHER HEALTH x10(9)/L [facility] [place] [facility] Specimen Anatomical Collection Method Collection Time Receive d Time (Source) Location / / Volume Laterality Blood (Blood, 08/01/2017 2:30 PM 08/01/19 18 2:32 Venous) ADULT BASIC EDUCATION TEACHER PM ADULT BASIC EDUCATION TEACHER Cora Dooley APRN C.N.P., D.N.P. LAB BLOOD ADD-ON Performing Organization Address City/State/ZIP Code Phon e Number [facility] [address] [place] [address] LAB documented in this encounter Visit Diagnoses Diagnosis Palpitations - Primary Anxiety Health Maintenance Examination Adult documented in this encounter
--- OUTSIDE RECORDS SUMMARY | 2022-05-31 15:56 | XMS_ITS | Encounter Summary ---
:1990 Author Organization [facility] Address [address] [place] [address] Care Team Providers Name Role Phone Suzanna Sofia M.D. Primary Care Provider [phone] Reason for Visit Reason Comments Fracture Work Related Injury Follow-up Outpatient (Routine) - Closed Specialty Diagnoses / Procedures Referred By Contact Refer red To Contact Orthopedic Surgery Diagnoses Rodolfo Fletcher, [facility] P.A.-C. [address] [place] [address] Referral ID Status Reason Start Date Expiration Date Visits Requ ested Visits Authorized [id number] Closed 06/21/2019 06/20/2020 1 1 Encounter Details Date Type Department Care Team Description 07/16/2019 Office Visit Department of Petra Baldwin Fracture L ittle Finger Orthopedic Surgery in , P.A.-C. Distal Phalanx [place], [place] [address] Nondisplaced Subsequent [address] [place], [place] [address] Left (Primary Dx) [phone] Social History Tobacco Use Types [...] 06/17/2019 relatives? How often do you attend jehovah's witness or islam Patient refused 06/17/2019 services? 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 - 07/16/2019 10:45 AM CST SUBJECTIVE Pain reported: REASON FOR FOLLOW-UP Fermin Lopez is a 29 y.o. male who presents for follow-up of Fracture, Work Related Injury, and Follow-up of the Left Little Finger and is under the care of Suzanna Sofia M.D.. HISTORY OF PRESENT ILLNESS Fermin is here for follow-up of a left small finger distal phalanx fracture. His date of injury was 06/11/2019. 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 He has been doing well, keeping his finger splinted, and he hasn't really been testing it range of motion dodge. He has minimal pain. The numbness and tingling he felt originally has resolved. OBJECTIVE PHYSICAL EXAM Ortho Exam Inspection of the left small finger shows mild edema. Stiff range of motion as to be expected. He can move his PIP joint. DIP joint range of motion is stiff. Nontender to palpation. Finger is sensate capillary refill is less than 2 seconds. DIAGNOSTICS IMAGING Three views of the left small finger show a skeletally mature individual with a transverse fracture of the proximal shaft of the distal phalanx. Minimal displacement. Early signs of healing noted. ASSESSMENT / PLAN #1 Fracture Little Finger Distal Phalanx Nondisplaced Subsequent With Routine Healing Left Fermin can discontinue splinting as he feels comfortable, and start working on gentle range of motion. He will return to work in the next couple of weeks. His job duties were reviewed. He'll follow up as needed. All questions were answered. OR CLINICAL DATA MANAGER documented in this encounter Plan of Treatment Not on filedocumented as of this encounter Visit Diagnoses Diagnosis Fracture Little Finger Distal Phalanx No ndisplaced Subsequent With Routine Healing Left - Primary documented in this encounter Care Teams Access Specialist Relationship Specialty Start Date End Date Suzanna Sofia M.D. PCP - General 04/03/[address] [place] [id number] documented as of this encounter
--- OUTSIDE RECORDS SUMMARY | 2022-05-31 15:56 | XMS_ITS | Encounter Summary ---
:1990 Author Organization [facility] Address [address] [place] [address] Care Team Providers Name Role Phone Suzanna Sofia M.D. Primary Care Provider [phone] Encounter Details Date Type Department Care Team Description 10/27/2020 Orders Only [facility] Sa pancho Cartagena M.D. [address] [place], [place] [phone] (Wo rk) Social History Tobacco Use Types [...] 06/17/2019 relatives? How often do you attend rastafarian or evangelical Patient refused 06/17/2019 services? 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 PCP - General 04/03/19 [address], [place] [address] documented as of this encounter
--- OUTSIDE RECORDS SUMMARY | 2022-05-31 15:56 | XMS_ITS | Encounter Summary ---
:1990 Author Organization [facility] Address [address] [place] [address] Care Team Providers Name Role Phone Unavailable Primary Care Provider Unavailable Encounter Details Date Type Department Care Team Description 08/01/2017 Abstract Department of Internal Medicine Provider, Historical in Nithya Juan ta [address] [place] [address] [facility] [phone] Social History Tobacco Use Types Packs/Day Years [...] 06/17/2019 relatives? How often do you attend anglican or judaism Patient refused 06/17/2019 services? 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
--- OUTSIDE RECORDS SUMMARY | 2022-05-31 15:56 | XMS_ITS | Encounter Summary ---
:1990 Author Organization [facility] Address [address] [place] [address] Care Team Providers Name Role Phone Unavailable Primary Care Provider Unavailable Reason for Visit Reason Comments Palpitations Encounter Details Date Type Department Care Team Description 08/10/2017 Emergency [facility] Palpitations (Primary Dx) [address] [facility] [place] [address] [facility] [phone] Social History Tobacco Use Types Packs/Day Years [...] 06/17/2019 relatives? How often do you attend mosque or christianity Patient refused 06/17/2019 services? 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
--- OUTSIDE RECORDS SUMMARY | 2022-05-31 15:56 | XMS_ITS | Encounter Summary ---
:[address] [facility] Address [address] [place] [address] Care Team Providers Name Role Phone Suzanna Sofia M.D. Primary Care Provider [phone] Encounter Details Date Type Department Care Team Description 06/12/2019 Hospital Encounter Department of Puja Rizvi, Ynes F hayden Left [facility] [address] [facility] [place] [phone] Social History Tobacco Use Types Packs/Day Years [...] 06/17/2019 relatives? How often do you attend samaritan or confucianist Patient refused 06/17/2019 services? 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 documented in this encounter Results DX Fingers Left 2+ Views (06/12/2019 12:28 PM AIRLINE PILOT) Anatomical Region Laterality Modality Upper Extremity, Fingers, Musculoskeletal RST LOS, Left Computed Radiography Musculoskeletal ARZ LOS, Muskuloskeletal FLA LOS Specimen (Source) Anatomical Collection Method Collection Time Re ceived Time Location / / Volume Laterality 06/12/2019 12:47 PM AIRLINE PILOT Impressions 06/12/2019 12:48 PM AIRLINE PILOT Acute minimally displaced and comminuted fracture of the left fifth distal phalangeal shaft. Small volar joe face soft tissue defect. Mild associated soft tissue swelling. This finding can b e associated with open fracture, correlate clinically. No radiopaque fore ign bodies. Narrative 06/12/2019 12:48 PM AIRLINE PILOT EXAM: DX FINGERS LEFT 2+ VIEWS COMPARISON: None Procedure Note Mejia Chatman M.D. - 06/12/2019Formattin g of this note might be different from the original. EXAM: DX FINGERS LEFT 2+ VIEWS COMPARISON: None IMPRESSION: Acute minimally displaced and comminuted fracture of the left fifth distal phalangeal shaft. Small volar joe face soft tissue defect. Mild associated soft tissue swelling. This finding can b e associated with open fracture, correlate clinically. No radiopaque fore ign bodies. Puja Rizvi P.A.-C. IMG DIAGNOSTIC IMAGING PROCE LEONIE documented in this encounter Visit Diagnoses Diagnosis Pain Finger Left documented in this encounter Care Teams Clasp Machine Operator Relationship Specialty Start Date End Date Suzanna Sofia M.D. PCP - General 04/03/[address] [phone] documented as of this encounter
--- OUTSIDE RECORDS SUMMARY | 2022-05-31 15:56 | XMS_ITS | Encounter Summary ---
:1990 Author Organization [facility] Address [address] [place] [address] Care Team Providers Name Role Phone Suzanna Sofia M.D. Primary Care Provider [phone] Encounter Details Date Type Department Care Team Description 06/13/2019 Clinical Communication Urgent Care [place] P.A.-C. [address] [facility] [place] [phone] Social History Tobacco Use Types Packs/Day [...] 06/17/2019 relatives? How often do you attend voodoo or scientology Patient refused 06/17/2019 services? 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 - 06/13/2019 3:46 PM SOAP CHIPPER Pt notified and note left at [facility] desk for pickup CHIPPER Telephone Encounter - Puja Rizvi P.A.-C. - 06/13/2019 2:40 PM CST Note dictated. CHIPPER Telephone Encounter - Melissa Gee L.P.N. - 06/13/2019 12:39 PM SOAP CHIPPER Need more specific details on restrictions with hand - lifting, moving , ect. Pt would like call back when note is ready for pickup CHIPPER Telephone Encounter - Swati Schaefer - 06/13/2019 11:01 AM CST Reason for Communication: Patient is calling his employer is asking for more specific work restrictions - please call patient for what they are looking for at Current Can Nursing/Provider leave a detailed message: yes you can Did the patient refuse triage through Nurse line? (for symptom based concerns): na Action Needed: Please call him back Name of Medication (if relevant): na CHIPPER documented in this encounter Plan of Treatment Not on filedocumented as of this encounter Visit Diagnoses Not on filedocumented in this encounter Care Teams Die Cast Supervisor Relationship Specialty Start Date End Date Suzanna Sofia M.D. PCP - General 04/03/[address]199 [address] [phone] documented as of this encounter
--- OUTSIDE RECORDS SUMMARY | 2022-05-31 15:56 | XMS_ITS | Encounter Summary ---
:1990 Author Organization [facility] Address [address] [place] [address] Care Team Providers Name Role Phone Suzanna Sofia M.D. Primary Care Provider [phone] Encounter Details Date Type Department Care Team Description 09/02/2019 Hospital Encounter Department of Bartolo Velasquez For Laboratory Medicine J, ROBERT, Venereal Disease in [place], C.N.P., M.S.N. [place] [address] [facility] [place] [phone] Social History Tobacco Use Types Packs/Day Years [...] 06/17/2019 relatives? How often do you attend nondenominational or hinduism Patient refused 06/17/2019 services? 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 documented in this encounter Results Chlamydia / Gonorrhoeae Amplified RNA (09/02/2019 11:15 AM GRAINING OPERATOR) [facility] Method Time Signature Source Urine, 09/02/2019 MKTO Urine, First 6:36 PM GRAINING OPERATOR Voided Chlamydia Negative Negative 09/02/2019 MKTO trachomatis 6:36 PM GRAINING OPERATOR amplified RNA Source Urine, 09/02/2019 MKTO Urine, First 6:36 PM GRAINING OPERATOR Voided Neisseria Negative Negative 09/02/2019 MKTO gonorrhoeae 6:36 PM GRAINING OPERATOR amplified RNA Specimen Anatomical Collection Method Collection Time Receive d Time (Source) Location / / Volume Laterality Varies (Urine, 09/02/2019 11:15 0 2:08 First Voided) AM GRAINING OPERATOR PM GRAINING OPERATOR Bartolo Velasquez APRN C.N.P., M.S.N. LAB MICROBIOLOGY - GENERAL ORDERABLES Performing Organization Address City/State/ZIP Code Phon e Number [facility]- [address] [place] [id number] [place] [address] [address] documented in this encounter Visit Diagnoses Diagnosis Screening For Venereal Disease documented in this encounter Care Teams Drawing Machine Operator Relationship Specialty Start Date End Date Suzanna Sofia M.D. PCP - General 04/03/19 [address] [place] [phone] documented as of this encounter
--- OUTSIDE RECORDS SUMMARY | 2022-05-31 15:56 | XMS_ITS | Encounter Summary ---
:1990 Author Organization [facility] Address [address] [place] [address] Care Team Providers Name Role Phone Suzanna Sofia M.D. Primary Care Provider [phone] Encounter Details Date Type Department Care Team Description 06/21/2019 Hospital Encounter Department of Rodolfo Liang [facility] Radiology in M, P.A.-C. Finger Distal [place], [place] [address] Phalanx Displaced [address] [place], [place] Closed Initial [place] [phone] Social History Tobacco Use Types Packs/Day Years [...] 06/17/2019 relatives? How often do you attend confucianist or quaker Patient refused 06/17/2019 services? 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 Left documented in this encounter Results DX Fingers Left 2+ Views (06/21/2019 10:21 AM COMMERCIAL COLLECTOR) Anatomical Region Laterality Modality Upper Extremity, Fingers, Musculoskeletal RST LOS, Left Computed Radiography Musculoskeletal ARZ LOS, Muskuloskeletal FLA LOS Specimen (Source) Anatomical Collection Method Collection Time Re ceived Time Location / / Volume Laterality 06/21/2019 10:24 AM COMMERCIAL COLLECTOR Impressions 06/21/2019 10:26 AM COMMERCIAL COLLECTOR Persistent, minimally displaced bleeding oriented fracture involving the mid, distal portion of the distal ph alanx of the right fifth finger. Distal right fifth finger fracture component is dorsally, ulnarly displaced on today's evaluation approximately 2 mm. If there is evidence of potential nailbed involvement this should be considered a potentially open fracture. No evidence of interval healing. Narrative 06/21/2019 10:26 AM COMMERCIAL COLLECTOR EXAM: DX FINGERS LEFT 2+ VIEWS COMPARISON: [...] evidence of interval healing. Rodolfo Liang P.A.-C. IMPati DIAGNOSTIC IMAGING [facility] LEONIE documented in this encounter Visit Diagnoses Diagnosis Fracture Little Finger Distal Phalanx Di splaced Closed Initial Left documented in this encounter Care Teams Medication Administration Professional Relationship Specialty Start Date End Date Suzanna Sofia M.D. PCP - General 04/03/[address] [place] [phone] documented as of this encounter
--- OUTSIDE RECORDS SUMMARY | 2022-05-31 15:56 | XMS_ITS | Encounter Summary ---
:1990 Author Organization [facility] Address [address] [place] [address] Care Team Providers Name Role Phone Suzanna Sofia M.D. Primary Care Provider [phone] Encounter Details Date Type Department Care Team Description 07/16/2019 Hospital Encounter Department of Rodolfo Liang Zainab Radiology in [place], P.A.-C. Finger Distal [place], [place] [address] Phalanx Displaced [address] [place], [place] Closed Initial Left [facility] [place] [phone] Social History Tobacco Use Types Packs/Day Years [...] How often do you attend voodoo or yazidi Patient refused 06/17/2019 services? 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 Left documented in this encounter Results DX Fingers Left 2+ Views (07/16/2019 10:14 AM PIPELINES SUPERINTENDENT) Anatomical Region Laterality Modality Upper Extremity, Fingers, Musculoskeletal RST LOS, Left Digital Radiography Musculoskeletal ARZ LOS, Muskuloskeletal FLA LOS Specimen (Source) Anatomical Collection Method Collection Time Re ceived Time Location / / Volume Laterality 07/16/2019 10:15 AM PIPELINES SUPERINTENDENT Impressions 07/16/2019 10:17 AM PIPELINES SUPERINTENDENT Transverse, slightly comminuted, minimally displaced fracture involving the central portion of the dis johnnie phalanx of the left fifth finger. If there is evidence of nailbed injury this be considered a potentially open fracture. Slightly increasing soft tissue swelling along the dorsal aspect of the distal left fifth finger. Fracture plane remains visible. Minimal healing since prior evaluation. Narrative 07/16/2019 10:17 AM PIPELINES SUPERINTENDENT EXAM: DX FINGERS LEFT 2+ VIEWS COMPARISON: [...] healing since prior evaluation. Rodolfo Liang P.A.-C. IMPati DIAGNOSTIC IMAGING PROCE LEONIE documented in this encounter Visit Diagnoses Diagnosis Fracture Little Finger Distal Phalanx Di splaced Closed Initial Left documented in this encounter Care Teams Automatic Brine Mixer Operator Relationship Specialty Start Date End Date Suzanna Sofia M.D. PCP - General 04/03/19 [address] [place] [phone] documented as of this encounter
--- OUTSIDE RECORDS SUMMARY | 2022-05-31 15:58 | XMS_ITS | Clinical Summary ---
:1990 Author Organization [facility] [place] [address] Care Team Providers Name Role Phone Pcp, No Primary Care Provider Unavailable Allergies No known active allergies Medications Medication Sig Dispensed Refills Start Date End Date Status LORazepam (ATIVAN) 0.5 Take 1 tablet by 10 tablet 0 08/10/2017 Active mg tabIndications: mouth every 6 Palpitations hours if needed. 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 LIEUTENANT Pulse 77 08/10/2017 6:43 AM FIRE INVESTIGATION [employer]IEUTENANT Temperature 36.6 ??C (97.9 ??F) 08/10/2017 5:45 AM FIRE INVESTIGATION [employer]UTENANT Respiratory Rate 16 08/10/2017 5:45 AM FIRE INVESTIGATION LIEUTENANT Oxygen Saturation 99% 08/10/2017 6:43 AM FIRE INVESTIGATION [employer]UTENANT Inhaled Oxygen Concentration - - Weight 67 kg (147 lb 12.8 oz) 08/10/2017 5:45 AM FIRE INVESTIGATION [employer]IE[employer]ENANT Height - - Body Mass Index - - Plan of Treatment Not on file Results Not on filefrom Last 3 Months Insurance Payer Benefit Plan Subscriber ID Effective Dates Phone Address Type / Group WC WORKERS WC [employer] OF [id number] [address] [place] [address] WC WORKERS [employer] OF [id number] [address] [place] [address] [employer]UE [employer] BLUE [employer]OSS [id number] [address] [address] [place] [phone] Fermin Lopez Workers Comp Self [address] (Home) [place] [address] Fermin Lopez Workers Comp Self [address] (Home) [place] [address] Care Teams Communications Program Manager Relationship Specialty Start Date End Date Pcp, No PCP - General 08/10/17 .
== END 2022-05-31 15:46 | disposition home or self-care (01) ==
LOC: NFLDREF 15:47
PROVIDERS: PCP Family Medicine; Visit Provider Registered Nurse
DX: Z31.41 Encounter for fertility testing (principal)
CPT/HCPCS: 89310; 89398